=== PATIENT | male | born 1980 | race Caucasian/White ===

== ENCOUNTER 2018-06-25 19:46 | Inpatient (IN) | payer OTHER, MEDICAID ==
[~2018-06-25] VITALS: Ht 195.6 cm; Wt 107.0 kg
[~2018-06-25 19:46] MED LIST: Acetaminophen/Hydrocodone Bi PO; CEPH250C16 PO
--- NOTE | 2018-06-25 19:46 | NUR ---
Patient ADITITyesha SNEHA, triaged by RN. Waiting for an available bed.
[2018-06-25 19:50] VITALS: BP 143/85
--- NOTE | 2018-06-25 20:45 | NUR ---
PT BIBA WITH C/O PAIN TO THE [facility] LEG/RIZVI. 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 PT STATED HE HAS AN INFECTION X 3 DAYS IN RIZVI. HE STATED HE CLEANS HIS WOUND EVERYDAY, LAST TIME WAS THIS MORNING. PT HAS HX OF METH USE. MEDICAL HX IS CANCER AND DM. NKA. PT PAIN LEVEL IS 10/10 AT THIS TIME. DENIES N/V/D; VSS; PATIENT POSITIONED FOR COMFORT; HOB ELEVATED; BEDRAILS UP X2; BED DOWN. ER MD MADE AWARE OF PT STATUS.
--- NOTE | 2018-06-25 20:51 | NUR ---
Patient transferred to bed 12. RN evaluating patient at bedside.
[2018-06-25] MEDS ORDERED: NACL 0.9% 1,000 ML IV ONE (22:40)
[2018-06-25] MEDS ORDERED: MORPHINE SULFATE 2 MG/ML SYR IVP ONE (22:40)
--- NOTE | 2018-06-25 22:54 | NUR ---
pt going to ct
--- NOTE | 2018-06-25 23:09 | NUR ---
BACK FROM CT
[2018-06-25 23:52] LABS: ANION GAP 6.8 (8-16); CARBON DIOXIDE 29.5 mmol/L (21-32); CREATININE 1.2 mg/dL (0.7-1.3); POTASSIUM 3.3 mmol/L (3.5-5.1)
[2018-06-25 23:54] LABS: BASOPHILS # (AUTO) 0.1 K/uL (0.00-0.22); BASOPHILS % (AUTO) 0.6 % (0.0-2.0); EOSINOPHILS # (AUTO) 0.2 K/uL (0-0.4); EOSINOPHILS % (AUTO) 1.3 % (0.0-4.0); HEMATOCRIT 30.3 % (36-52); HEMOGLOBIN 9.7 g/dL (12.0-18.0); LYMPHOCYTES # (AUTO) 2.8 K/uL (2.0-11.5); LYMPHOCYTES % (AUTO) 21.1 % (20.5-51.1); MEAN CORPUSCULAR HEMOGLOBIN 24 pg (27-31); MEAN CORPUSCULAR HGB CONC 32 g/dL (33-37); MEAN CORPUSCULAR VOLUME 74.7 fL (80-94); MONOCYTES # (AUTO) 0.7 K/uL (0.8-1.0); MONOCYTES % (AUTO) 5.6 % (1.7-9.3); NEUTROPHILS # (AUTO) 9.3 K/uL (1.8-7.7); NEUTROPHILS % (AUTO) 71.4 % (42.2-75.2); PLATELET COUNT (AUTO) 415 K/uL (140-450); RED BLOOD CELL COUNT(AUTO) 4.06 MIL/uL (4.20-6.10); RED CELL DISTRIBUTION WIDTH 15.1 % (11.6-13.7)
[2018-06-25 23:58] LABS: ALBUMIN 2.6 g/dL (3.4-5.0); TOTAL BILIRUBIN 0.2 mg/dL (0.0-1.0)
[2018-06-26] MEDS ORDERED: CLINDAMYCIN 900 MG in DEXTROSE 5% 100 ML IV ONE (00:35)
[2018-06-26] MEDS ORDERED: POTASSIUM CHLORIDE 10 MEQ TABER PO ONE (01:00)
[2018-06-26] MEDS ORDERED: CLINDAMYCIN 900 MG/6 ML VIAL IV ONE (01:01)
--- NOTE | 2018-06-26 01:05 | NUR ---
PT SLEEPING IN BED, VITALS STABLE.
[2018-06-26] MEDS ORDERED: LORazepam 2 MG/ML VIAL IM/IVP PRN (02:00)
[2018-06-26] MEDS ORDERED: ZOLPIDEM 5 MG TAB PO PRN (02:00)
[2018-06-26] MEDS ORDERED: ONDANSETRON 4 MG/2 ML VIAL IM/IVP PRN (02:00)
[2018-06-26] MEDS ORDERED: MORPHINE SULFATE 2 MG/ML SYR IVP PRN (02:00)
[2018-06-26] MEDS ORDERED: DOCUSATE SODIUM 100 MG GELCAP PO PRN (02:00)
[2018-06-26 02:33] LABS: THYROID STIMULATING HORMONE 0.87 uIU/mL (0.34-3.74)
[2018-06-26 02:40] LABS: MAGNESIUM 1.8 mg/dL (1.8-2.4)
[2018-06-26] MEDS ORDERED: POTASSIUM CHLORIDE 10 MEQ TABER PO SCH ×2 (02:45→13:30)
[2018-06-26] MEDS ORDERED: DEXTROSE 50% 50 ML SYR IVP PRN (02:50)
--- NOTE | 2018-06-26 02:50 | NUR ---
Pt report given to SUZI FELIZ. Transfer of care at this time.VITALS STABLE
--- NOTE | 2018-06-26 02:55 | NUR ---
Patient will be admitted to care of DR. SLOAN. Admited to TELEMETRY. Will go to room 118. Belongings list completed. Report to SUZI FELIZ.PT VITALS STABLE AT TRANSFER
[2018-06-26 03:00] VITALS: BP 130/81
--- NOTE | 2018-06-26 03:00 | NUR ---
RECEIVED REPORT FROM ER NURSE AT BEDSIDE FOR CONTINUITY OF CARE. PT AAOX4. PT IV NOTED LAC 20G. NO SOB NO S.S OF DISTRESS ON RA. PT BED LOWERED ORIENTED TO ROOM PT AMBULATORY. WILL CONTINUE TO MONITOR.
[2018-06-26 03:29] LABS: APPEARANCE,URINE CLEAR (CLEAR); BILIRUBIN,URINE NEGATIVE (NEGATIVE); BLOOD, URINE NEGATIVE (NEGATIVE); COLOR,URINE YELLOW (YELLOW); LEUKOCYTE ESTERASE ,URINE NEGATIVE (NEGATIVE); NITRITE, URINE NEGATIVE (NEGATIVE); PH,URINE 6.5 (5.0-9.0); UGLUCOSE NEGATIVE (NEGATIVE)
[2018-06-26 03:35] LABS: BARBITURATE, URINE NEG. ng/ml (NEG <=200); BENZODIAZEPINE, URINE NEG. ng/mL (NEG <=200); CANNABINOID, URINE NEG. ng/mL (NEG <=50); COCAINE, URINE NEG. ng/mL (NEG <=300); OPIATE, URINE NEG. ng/mL (NEG <=2000); PHENCYCLIDINE SCREEN,URINE NEG. ng/mL (NEG <=25)
[2018-06-26] MEDS: NACL 0.9% 1,000 ML IV SCH ×3 (03:49→17:54)
[2018-06-26] MEDS ORDERED: PIPERACILLIN/TAZOBACTAM 3.375 GM in DEXTROSE 5% 50 ML IV SCH (04:00)
[2018-06-26] MEDS ORDERED: PIPERACILLIN/TAZOBACTAM 3.375 GM VIAL IV ONE (04:36)
[2018-06-26] MEDS: BLOOD GLUCOSE MONITORING 1 DEV DEV FS SCH ×4 (06:38→20:31)
[2018-06-26] MEDS: INSULIN LISPRO SLIDING SCALE 100 UNITS/ML VIAL SUBQ PRN ×2 (06:41→12:00)
--- NOTE | 2018-06-26 07:20 | NUR ---
ENDORSED REPORT TO DAYSHIFT NURSE AT BEDSIDE FOR CONTINUITY OF CARE.
--- NOTE | 2018-06-26 07:40 | NUR ---
PATIENT WAS SLEEPING COMFORTABLY, EASILY AROUSABLE BY NAME. RESPIRATION EVEN, UNLABOR ON ROOM AIR. SKIN DRY AND WARM. IV PATENT AND INTACT. ADMITTED HAVING LEG PAIN 8/10, BUT REFUSED PAIN MED, STATED "THE PAIN IS STILL TOLERABLE". PLAN OF CARE WAS DISCUSSED WITH PATIENT. BED AT LOW POSITION, SIDE RAILS UP. CALL LIGHT WITHIN REACH.
[2018-06-26 08:00] VITALS: BP 129/83
--- NOTE | 2018-06-26 08:10 | NUR ---
PATIENT HAS BEEN SCREENED AND CATEGORIZED HIGH RISK. PATIENT WILL BE SEEN WITHIN 1-2 DAYS OF ADMISSION. 06/27-04/[address], [facility]
--- NOTE | 2018-06-26 08:50 | NUR ---
PATIENT AWAKE, ALERT. RESPIRATION EVEN, UNLABOR ON ROOM AIR. NO DISTRESS NOTED AT THIS TIME
[2018-06-26] MEDS: LACTOBACILLUS RHAMNOSUS GG 1 EACH CAP PO SCH (09:12)
--- NOTE | 2018-06-26 11:45 | NUR ---
PATIENT AWAKE, ALERT. RESPIRATION EVEN, UNLABOR ON ROOM AIR. COMPLAINED OF LEG PAIN 8/10, BUT REFUSED TO TAKE PAIN MED AT THIS TIME. MED WAS GIVEN FOR FEVER 101.2, WILL CONTINUE TO MONITOR. CALL LIGHT WITHIN REACH
[2018-06-26] MEDS: ACETAMINOPHEN 325 MG TAB PO PRN ×2 (11:57→17:58)
[2018-06-26 12:00] VITALS: BP 128/69
[2018-06-26] MEDS ORDERED: VANCOMYCIN HCL 750 MG in DEXTROSE 5% 250 ML IV SCH (12:20)
--- NOTE | 2018-06-26 12:45 | NUR ---
WOUND CARE WAS GIVEN. DRESSING WAS CHANGED. PATIENT TOLERATED WELL.
[2018-06-26] MEDS ORDERED: VANCOMYCIN PER PHARMACY MC PRN (13:25)
--- NOTE | 2018-06-26 14:15 | NUR ---
PATIENT WAS SLEEPING COMFORTABLY. RESPIRATION EVEN, UNLABOR ON ROOM AIR. NO DISTRESS NOTED AT THIS TIME
[2018-06-26] MEDS: VANCOMYCIN 1,500 MG in DEXTROSE 5% 500 ML IV SCH (15:15)
[2018-06-26 16:00] VITALS: BP 133/86
[2018-06-26] MEDS: HYDROcodone/APAP 5/325 MG 1 TAB TAB PO PRN (16:24)
--- NOTE | 2018-06-26 16:32 | NUR ---
PATIENT WAS AWAKE, ALERT. RESPIRATION EVEN, UNLABOR ON ROOM AIR. COMPLAINED OF LEG PAIN /, REQUESTED NORCO, WILL MEDICATE PER ORDER. ICE PACKS WERE GIVEN FOR THE FEVER CONTROL
--- NOTE | 2018-06-26 17:50 | NUR ---
PATIENT TEMP 103.2. TYLENOL WAS GIVEN PER ORDER. ICE PACKS WERE APPLIED. WILL NOTIFY
--- NOTE | 2018-06-26 18:07 | NUR ---
DR. CANSECO WAS MADE AWARE OF PATIENT'S HR 141, TEMP 103.6. WILL MEDICATE PER ORDER
[2018-06-26] MEDS ORDERED: NACL 0.9% 1,000 ML IV ONE ×2 (18:10→20:00)
--- NOTE | 2018-06-26 18:18 | NUR ---
PATIENT AWAKE, ALERT. RESPIRATION EVEN, UNLABOR ON ROOM AIR. IVF WAS GIVEN PER ORDER. NO DISTRESS NOTED AT THIS TIME. CALL LIGHT WITHIN REACH
--- NOTE | 2018-06-26 19:25 | NUR ---
ENDORSEMENT GIVEN TO THE PARKS RECREATION COORDINATOR NURSE. PATIENT IS STABLE AT THIS TIME
--- NOTE | 2018-06-26 19:26 | NUR ---
RECEIVED REPORT FROM DAY SHIFT RN, FOR CONTINUITY OF CARE. PT IS A/OX4, ON ROOM AIR. PT IS ABLE TO MAKE NEEDS KNOWN, ABLE TO FOLLOW COMMANDS. PT BREATHS EQUAL AND UNLABORED. PT SKIN IS NON-INTACT, SEE WOUND ASSESSMENT. PT HAS A 20G IV TO LEFT AC, ASYMPTOMATIC AND INTACT. DISCUSSED PLAN OF CARE WITH PT, PT VERBALIZED UNDERSTANDING. TEMPERATURE ELEVATED BUT TRENDING DOWN FROM PREVIOUS TEMP. OTHER VITAL SIGNS WITHIN NORMAL LIMITS. PT STABLE, NO SIGNS OF DISTRESS NOTED AT THIS TIME. BED IN LOWEST POSITION, BED ALARM ON. CALL LIGHT WITHIN REACH, WILL CONTINUE TO MONITOR.
[2018-06-26 19:35] VITALS: BP 117/64
--- NOTE | 2018-06-26 21:31 | NUR ---
BOLUS STILL INFUSING, NO INSULIN COVERAGE NEEDED FOR GLUCOSE LEVEL 142.
--- NOTE | 2018-06-26 23:10 | NUR ---
PT TEMPERATURE STILL TRENDING DOWN. AFEBRILE.
[2018-06-27] VITALS: BP 136/86
--- NOTE | 2018-06-27 | NUR ---
VITAL SIGNS WITHIN NORMAL LIMITS. PT STABLE, NO SIGNS OF DISTRESS NOTED AT THIS TIME. BED IN LOWEST POSITION, BED ALARM ON. CALL LIGHT WITHIN REACH, WILL CONTINUE TO MONITOR.
--- NOTE | 2018-06-27 01:34 | NUR ---
DRESSING ON WOUND STILL CLEAN AND INTACT.
[2018-06-27] MEDS: NACL 0.9% 1,000 ML IV SCH ×2 (02:35→09:48)
--- NOTE | 2018-06-27 02:35 | NUR ---
PT STILL AFEBRILE.
[2018-06-27] MEDS: VANCOMYCIN 1,500 MG in DEXTROSE 5% 500 ML IV SCH (02:36)
--- NOTE | 2018-06-27 02:36 | NUR ---
INFORMED PT THAT BECAUSE HE HAS DM, PNA VACCINE AVAILABLE TO HIM. OFFERED PT PNA VACCINE BUT PT REFUSED STATING HE WOULD RATHER DISCUSS IT WITH HIS PCP FIRST.
[2018-06-27 04:00] VITALS: BP 131/79
[2018-06-27] MEDS: BLOOD GLUCOSE MONITORING 1 DEV DEV FS SCH ×4 (06:38→20:31)
[2018-06-27 06:49] LABS: BASOPHILS # (AUTO) 0.1 K/uL (0.00-0.22); BASOPHILS % (AUTO) 0.5 % (0.0-2.0); EOSINOPHILS # (AUTO) 0.3 K/uL (0-0.4); HEMATOCRIT 28.6 % (36-52); HEMOGLOBIN 9.2 g/dL (12.0-18.0); LYMPHOCYTES # (AUTO) 1.6 K/uL (2.0-11.5); LYMPHOCYTES % (AUTO) 14.9 % (20.5-51.1); MEAN CORPUSCULAR HEMOGLOBIN 24 pg (27-31); MEAN CORPUSCULAR HGB CONC 32 g/dL (33-37); MEAN CORPUSCULAR VOLUME 74.7 fL (80-94); MONOCYTES # (AUTO) 0.6 K/uL (0.8-1.0); MONOCYTES % (AUTO) 5.8 % (1.7-9.3); NEUTROPHILS # (AUTO) 8.1 K/uL (1.8-7.7); NEUTROPHILS % (AUTO) 75.8 % (42.2-75.2); PLATELET COUNT (AUTO) 384 K/uL (140-450); RED BLOOD CELL COUNT(AUTO) 3.82 MIL/uL (4.20-6.10); RED CELL DISTRIBUTION WIDTH 15.2 % (11.6-13.7); WHITE BLOOD COUNT (AUTO) 10.7 K/uL (4.8-10.8)
[2018-06-27 07:00] LABS: MAGNESIUM 1.9 mg/dL (1.8-2.4); PHOSPHORUS 2.5 mg/dL (2.5-4.9)
[2018-06-27 07:01] LABS: ANION GAP 5.2 (8-16); CARBON DIOXIDE 28.2 mmol/L (21-32); CREATININE 0.7 mg/dL (0.7-1.3); POTASSIUM 3.4 mmol/L (3.5-5.1)
--- NOTE | 2018-06-27 07:17 | NUR ---
ENDORSED PT TO DAY SHIFT RN FOR CONTINUITY OF CARE, PT IN STABLE CONDITION. Addendum: 06/27/18 at 0717 by Gena Youssef RN DISREGARD.
--- NOTE | 2018-06-27 07:18 | NUR ---
ENDORSED PT TO DAY SHIFT BLAYNE VALERA FOR CONTINUITY OF CARE, PT IN STABLE CONDITION.
--- NOTE | 2018-06-27 07:20 | NUR ---
ASSUMED CONTINUITY OF CARE. NO SIGNS AND SYMPTOMS OF ACUTE DISTRESS NOTED. INITIAL ASSESSMENT DONE. EXPLAINED DIAGNOSIS, PLAN OF CARE, PAIN MANAGEMENT TEACHING, USE OF CALL LIGHT/BED/TV/BATHROOM. VERBALIZED UNDERSTANDING. CALL LIGHT WITHIN REACH.
[2018-06-27 08:00] VITALS: BP 129/82
--- NOTE | 2018-06-27 08:00 | NUR ---
Patient's Plan of Care was discussed and reviewed with SKEIN DYER: LIBBY CONTINUE WITH CURRENT PLAN OF CARE.
[2018-06-27 08:09] LABS: T4 (THYROXINE) 6.9 ug/dL (4.5-12.0)
--- NOTE | 2018-06-27 08:13 | NUR ---
INFORMED DR. GODOY ABOUT PT. K 3.4 AND DIET CHANGE DUE TO PT. DM.
[2018-06-27] MEDS: LACTOBACILLUS RHAMNOSUS GG 1 EACH CAP PO SCH (08:40)
[2018-06-27] MEDS ORDERED: VANCOMYCIN 1,500 MG in DEXTROSE 5% 500 ML IV SCH (10:06)
[2018-06-27] MEDS ORDERED: POTASSIUM CHLORIDE 10 MEQ TABER PO SCH (10:15)
[2018-06-27] MEDS: INSULIN LISPRO SLIDING SCALE 100 UNITS/ML VIAL SUBQ PRN (11:46)
[2018-06-27 12:00] VITALS: BP 149/89
[2018-06-27] MEDS: ACETAMINOPHEN 325 MG TAB PO PRN (12:12)
[2018-06-27] MEDS: PIPER/TAZO 3.375GM/D5W PREMIX 50 ML IV SCH ×2 (12:36→20:31)
--- NOTE | 2018-06-27 13:30 | NUR ---
TEMP 99.0 TEMPORAL SCAN. NO ACUTE DISTRESS NOTED. ENCOURAGED FLUID INTAKE. WILL MONITOR.
--- NOTE | 2018-06-27 14:25 | NUR ---
GUEST SERVICES MANAGER JACOB CAME FOR PT. NAHED BLOOD DRAW.
--- NOTE | 2018-06-27 15:34 | NUR ---
CALLED PHARMACY AND SPOKE TO [facility] REGARDING VANCOCIN DOSE SCHEDULED AT 1500. PER -[facility], DOSE WILL BE CHANGE PER PHARMACY AND DOSE WILL SEND TO [facility] ONCE IT'S READY.
[2018-06-27] MEDS: VANCOMYCIN 2,000 MG in DEXTROSE 5% 500 ML IV SCH ×2 (16:40→23:21)
--- NOTE | 2018-06-27 19:08 | NUR ---
REPORT GIVEN TO CECILY HENSLEY. IVF INFUSING WELL. IN STABLE CONDITION.
--- NOTE | 2018-06-27 19:10 | NUR ---
RECEIVED REPORT FROM DAY SHIFT RN, FOR CONTINUITY OF CARE. PT IS A/OX4, ON ROOM AIR. PT IS ABLE TO MAKE NEEDS KNOWN, ABLE TO FOLLOW COMMANDS. PT BREATHS EQUAL AND UNLABORED. PT SKIN IS NON-INTACT, SEE WOUND ASSESSMENT. PT HAS A 20G IV TO LEFT HAND INFUSING NS@60ML/HR, ASYMPTOMATIC AND INTACT. DISCUSSED PLAN OF CARE WITH PT, PT VERBALIZED UNDERSTANDING. VITAL SIGNS WITHIN NORMAL LIMITS. PT STABLE, NO SIGNS OF DISTRESS NOTED AT THIS TIME. BED IN LOWEST POSITION, BED ALARM ON. CALL LIGHT WITHIN REACH, WILL CONTINUE TO MONITOR.
--- NOTE | 2018-06-27 21:15 | NUR ---
ENDORSED PT TO TRINI ROSAS. PARUL VALENTINO.
--- NOTE | 2018-06-27 21:16 | NUR ---
RECEIVED BEDSIDE REPORT FROM NURSE CECILY FELIZ, PT IN STABLE CONDITION, WILL CONTINUE TO MONITOR.
[2018-06-27] MEDS: HYDROcodone/APAP 5/325 MG 1 TAB TAB PO PRN (23:21)
--- NOTE | 2018-06-27 23:21 | NUR ---
DUE MEDICATION ADMINISTERED, PT STATED HAVING PAIN ON LEG, PAIN MEDICATION ORDERED ADMINISTERED, PT TOLERATED WELL, NO DISTRESS NOTED, CALL LIGHT WITHIN REACH, WILL CONTINUE TO MONITOR.
[2018-06-28 00:22] VITALS: BP 122/82
--- NOTE | 2018-06-28 02:11 | NUR ---
CHECKED ON PT, PT SLEEPING, NO DISTRESS NOTED, CALL LIGHT WITHIN REACH, WILL CONTINUE TO MONITOR.
[2018-06-28] MEDS: NACL 0.9% 1,000 ML IV SCH ×2 (04:57→16:50)
[2018-06-28] MEDS: PIPER/TAZO 3.375GM/D5W PREMIX 50 ML IV SCH ×3 (04:57→21:16)
--- NOTE | 2018-06-28 04:57 | NUR ---
DUE MEDICATION ADMINISTERED, PT TOLERATED WELL, NO DISTRESS NOTED, CALL LIGHT WITHIN REACH, WILL CONTINUE TO MONITOR.
[2018-06-28] MEDS: BLOOD GLUCOSE MONITORING 1 DEV DEV FS SCH ×4 (05:55→21:00)
--- NOTE | 2018-06-28 07:20 | NUR ---
ENDORSED PT TO DAY SHIFT NURSE FAMILIA RN, PT STABLE, NO DISTRESS NOTED, CALL LIGHT WITHIN REACH.
--- NOTE | 2018-06-28 07:21 | NUR ---
RECEIVED REPORT FROM DIRECTOR FIELD SERVICES NURSE. PATIENT LYING DOWN IN BED SLEEPING, AROUSABLE BY VOICE. NO DISTRESS NOTED. PAIN WITHIN TOLERABLE AT THIS TIME. AAOX4, CALM, COOPERATIVE, SKIN COLOR APPROPRIATE TO ETHNICITY, WARM TO TOUCH. HAS LEFT LOWER EXTREMITY OPEN WOUND, DRESSING IS DRY AND INTACT. LUNGS CTA ON ALL LOBES. ABDOMEN SOFT, NON-DISTENDED. IV SITE INTACT, PATENT, AND INFUSING IVF PER MD ORDERS. REVIEWED PLAN OF CARE WITH PATIENT. PATIENT VERBALIZED UNDERSTANDING. SAFETY MEASURES IN PLACE, CALL LIGHT WITHIN REACH. WILL CONTINUE TO MONITOR.
[2018-06-28 07:54] LABS: ANION GAP 11.7 (8-16); CARBON DIOXIDE 28.3 mmol/L (21-32); CREATININE 0.8 mg/dL (0.7-1.3)
[2018-06-28 07:56] LABS: PHOSPHORUS 4.2 mg/dL (2.5-4.9)
[2018-06-28 07:57] LABS: BASOPHILS # (AUTO) 0.1 K/uL (0.00-0.22); BASOPHILS % (AUTO) 0.7 % (0.0-2.0); EOSINOPHILS # (AUTO) 0.6 K/uL (0-0.4); HEMATOCRIT 31.3 % (36-52); LYMPHOCYTES # (AUTO) 1.6 K/uL (2.0-11.5); LYMPHOCYTES % (AUTO) 14.2 % (20.5-51.1); MEAN CORPUSCULAR HEMOGLOBIN 24 pg (27-31); MEAN CORPUSCULAR HGB CONC 32 g/dL (33-37); MEAN CORPUSCULAR VOLUME 74.4 fL (80-94); MONOCYTES # (AUTO) 0.6 K/uL (0.8-1.0); MONOCYTES % (AUTO) 4.9 % (1.7-9.3); NEUTROPHILS # (AUTO) 8.6 K/uL (1.8-7.7); NEUTROPHILS % (AUTO) 75.2 % (42.2-75.2); PLATELET COUNT (AUTO) 408 K/uL (140-450); RED BLOOD CELL COUNT(AUTO) 4.21 MIL/uL (4.20-6.10); WHITE BLOOD COUNT (AUTO) 11.4 K/uL (4.8-10.8)
[2018-06-28 08:00] VITALS: BP 131/92
[2018-06-28] MEDS: VANCOMYCIN 2,000 MG in DEXTROSE 5% 500 ML IV SCH (08:59)
[2018-06-28] MEDS: LACTOBACILLUS RHAMNOSUS GG 1 EACH CAP PO SCH (09:00)
--- NOTE | 2018-06-28 09:05 | NUR ---
PATIENT SITTING IN BED WATCHING TV. NO DISTRESS NOTED. PAIN WITHIN TOLERABLE. SCHEDULED MEDICATIONS DUE GIVEN. SAFETY MEASURES IN PLACE, CALL LIGHT WITHIN REACH. WILL CONTINUE TO MONITOR.
--- NOTE | 2018-06-28 13:41 | NUR ---
PATIENT LYING DOWN IN BED SLEEPING, AROUSABLE BY VOICE. PAIN WITHIN TOLERABLE. SCHEDULED MEDICATIONS DUE GIVEN. WILL CONTINUE TO MONITOR.
--- NOTE | 2018-06-28 14:51 | NUR ---
06/28/18 RD INITIAL ASSESSMENT COMPLETED PLEASE REFER TO NUTRITION ASSESSMENT UNDER CARE ACTIVITY FOR ESTIMATED NUTRITIONAL NEEDS. 1. CONTINUE CCHO 60 DIET TOLERATED 2. RECOMMEND [place] BID. 3. RD TO FOLLOW-UP 5-7 DAYS, LOW RISK MORENITA BUTTERFIELD, RD
--- NOTE | 2018-06-28 15:25 | NUR ---
WOUND CARE EVALUATION NOTE: REASON FOR EVALUATION: LEFT LOWER LEG SARCOMA MASS WOUND SKIN ASSESSMENT DONE WITH THIS 38 Y/O MALE PT ADMITTED FROM HOME TO [facility] WITH INITIAL DX OF LEFT LEG PAIN X 1 WEEK. PAST MEDICAL HX INCLUDES LEFT TIBIAL SARCOMA. ALL ABOVE INFORMATION OBTAINED FROM ADMISSION H&P. AND PT. PT IS AAX3. PT. SHOULD HAVE CHEMOTHERAPY TO [facility], PT PREFERS TO COME TO LOCAL AREA SINCE HE LIVES AT [place]. DR. GILLESPIE MADE AWARE WILL ASSIST IN ARRANGING CARE TO LOCAL HOSPITAL SUCH [facility]. LABS ARE WBC 11.4, H/H 10.0/31.3, GLUCOSE 102 AND ALBUMIN 2.6. SKIN IS WARM AND DRY, BLE LOT OF HAIR GROWTH. BILATERAL DORSAL PEDAL PULSES PRESENT AND NORMAL. CAPILLARY REFILLED < 2 SEC. X 10 TOES. PLAN OF CARE DISCUSSED WITH PRIMARY RN AND PT. PT. VERBALIZES UNDERSTANDING. INTEGUMENTARY: -LEFT LOWER LEG SARCOMA MASS [id number] WITH 10 CM TALL, OOZING PURULENT DRAINAGE WITH STRONG ODOR, GIOVANY WOUND SKIN INTACT, PAIN2/10 RECOMMENDATIONS: -SURGEON TO CONSULT. -CLEANSE LEFT LOWER LEG SARCOMA MASS WITH NS. PAT DRY, APPLY XEROFORM, AND COVER WITH ABD PAD, WRAP WITH KERLIX ROLL DAILY AND PRN IF SOILING. -OFFLOAD BILATERAL HEELS BY PLACING PILLOWS UNDER CALVES UNLESS OTHERWISE CONTRAINDICATED -TURN AND REPOSITION Q2H, OFFLOAD LEFT SCAPULAR BY TURNING RIGHT AND LEFT -CONTINUE TO FOLLOW RD RECOMMENDATIONS ALL ABOVE RECOMMENDATIONS DISCUSSED WITH PRIMARY RN AND DR. GILLESPIE WILL FOLLOW UP PT Q7-10 DAYS. PLEASE CONTACT WOUND CARE NURSE FOR ANY QUESTION AND CHANGE OF WOUND CONDITION
[2018-06-28 16:00] VITALS: BP 126/84
[2018-06-28] MEDS: FERROUS SULFATE 325 MG TABEC PO SCH (17:50)
[2018-06-28] MEDS: HYDROcodone/APAP 5/325 MG 1 TAB TAB PO PRN (17:50)
--- NOTE | 2018-06-28 17:52 | NUR ---
DR. GILLESPIE AT BEDSIDE REVIEWING PLAN OF CARE WITH PATIENT/ AT BEDSIDE. SCHEDULED MEDICATIONS DUE GIVEN. COMPLAINS OF PAIN ON LLE, NORCO GIVEN PER ORDERS. SAFETY MEASURES IN PLACE, CALL LIGHT WITHIN REACH. WILL CONTINUE TO MONITOR.
[2018-06-28] MEDS: VANCOMYCIN 1,750 MG in DEXTROSE 5% 500 ML IV SCH (18:44)
--- NOTE | 2018-06-28 18:45 | NUR ---
PATIENT LYING DOWN IN BED WATCHING TV. NO DISTRESS NOTED. DENIES ANY PAIN. SCHEDULED MEDICATIONS DUE GIVEN. CONDITION UNCHANGED. WILL CONTINUE TO MONITOR.
--- NOTE | 2018-06-28 19:27 | NUR ---
GAVE REPORT TO WILDLAND FIRE FIGHTER SPECIALIST NURSE FOR CONTINUITY OF CARE. PATIENT IN STABLE CONDITION.
--- NOTE | 2018-06-28 19:30 | NUR ---
RECEIVED REPORT FROM DAYSHIFT NURSE AT BEDSIDE FOR CONTINUITY OF CARE. PT AAOX4. PT IV NOTED L HAND NS 60ML/HR. OF NOW VANCO IVPB IS RUNNING AT 250ML/HR. NO SOB NO S/S OF DISTRESS ON RA. PT HAS L TIBIAL WOUND. BED LOWERED CALL LIGHT WITHIN REACH WILL CONTINUE TO MONITOR.
[2018-06-28 23:03] VITALS: BP 126/88
--- NOTE | 2018-06-29 | NUR ---
PT SLEEPING NO SOB NO S/S OF DISTRESS ON RA. WILL CONTINUE TO MONITOR.
--- NOTE | 2018-06-29 | NUR ---
PT IN BED ASLEEP BUT PT AROUSABLE TO NAME. V/S FOLLOWS T 98.8 P 98 R 18 B/P 127/85 02 99% WITH R/A. DRESSING ON LEFT LEG INTACT.
[2018-06-29] MEDS: VANCOMYCIN 1,750 MG in DEXTROSE 5% 500 ML IV SCH ×3 (02:00→18:52)
--- NOTE | 2018-06-29 02:00 | NUR ---
PT SLEEPING SOUNDLY BED RAILS UP X2 AND CALL PHAN IN REACH.
[2018-06-29] MEDS: PIPER/TAZO 3.375GM/D5W PREMIX 50 ML IV SCH ×3 (04:33→22:32)
--- NOTE | 2018-06-29 04:38 | NUR ---
PT SLEEPING NO SOB NO S/S OF DISTRESS ON RA. WILL CONTINUE TO MONITOR.
[2018-06-29] MEDS: BLOOD GLUCOSE MONITORING 1 DEV DEV FS SCH ×4 (05:57→21:00)
[2018-06-29 06:40] LABS: BASOPHILS % (AUTO) 0.3 % (0.0-2.0); EOSINOPHILS # (AUTO) 0.5 K/uL (0-0.4); EOSINOPHILS % (AUTO) 5.5 % (0.0-4.0); HEMOGLOBIN 10.6 g/dL (12.0-18.0); LYMPHOCYTES # (AUTO) 1.5 K/uL (2.0-11.5); LYMPHOCYTES % (AUTO) 15.9 % (20.5-51.1); MEAN CORPUSCULAR HEMOGLOBIN 24 pg (27-31); MEAN CORPUSCULAR HGB CONC 32 g/dL (33-37); MEAN CORPUSCULAR VOLUME 74.3 fL (80-94); MONOCYTES # (AUTO) 0.7 K/uL (0.8-1.0); MONOCYTES % (AUTO) 7.5 % (1.7-9.3); NEUTROPHILS # (AUTO) 6.8 K/uL (1.8-7.7); NEUTROPHILS % (AUTO) 70.8 % (42.2-75.2); PLATELET COUNT (AUTO) 498 K/uL (140-450); RED BLOOD CELL COUNT(AUTO) 4.43 MIL/uL (4.20-6.10); RED CELL DISTRIBUTION WIDTH 15.3 % (11.6-13.7); WHITE BLOOD COUNT (AUTO) 9.5 K/uL (4.8-10.8)
[2018-06-29 06:52] LABS: ANION GAP 9.8 (8-16); CARBON DIOXIDE 26.1 mmol/L (21-32); CREATININE 0.9 mg/dL (0.7-1.3); POTASSIUM 3.9 mmol/L (3.5-5.1)
[2018-06-29 06:57] LABS: PHOSPHORUS 4.4 mg/dL (2.5-4.9)
--- NOTE | 2018-06-29 07:08 | NUR ---
ENDORSED REPORT TO DAYSHIFT NURSE AT BEDSIDE FOR CONTINUITY OF CARE.
--- NOTE | 2018-06-29 07:09 | NUR ---
RECEIVED REPORT FROM SALES PROMOTER NURSE. PATIENT LYING DOWN IN BED SLEEPING, AROUSABLE BY VOICE. NO DISTRESS NOTED. DENIES ANY PAIN AT THIS TIME. AAOX4, CALM, COOPERATIVE, SKIN COLOR APPROPRIATE TO ETHNICITY, WARM TO TOUCH. HAS LEFT LOWER EXTREMITY OPEN WOUND, DRESSING IS DRY AND INTACT. LUNGS CTA ON ALL LOBES. ABDOMEN SOFT, NON-DISTENDED. IV SITE INTACT, PATENT, AND INFUSING IVF PER MD ORDERS. REVIEWED PLAN OF CARE WITH PATIENT. PATIENT VERBALIZED UNDERSTANDING. SAFETY MEASURES IN PLACE, CALL LIGHT WITHIN REACH. WILL CONTINUE TO MONITOR.
[2018-06-29 07:36] LABS: FOLIC ACID 7.1 ng/mL (>3.0)
[2018-06-29 08:00] VITALS: BP 120/83
[2018-06-29] MEDS: LACTOBACILLUS RHAMNOSUS GG 1 EACH CAP PO SCH (08:29)
[2018-06-29] MEDS: FERROUS SULFATE 325 MG TABEC PO SCH ×2 (08:29→17:21)
--- NOTE | 2018-06-29 08:30 | NUR ---
PATIENT LYING DOWN IN BED SLEEPING, AROUSABLE BY VOICE. NO DISTRESS NOTED. PAIN WITHIN TOLERABLE. SCHEDULED MEDICATIONS DUE GIVEN. WILL CONTINUE TO MONITOR.
[2018-06-29] MEDS: NACL 0.9% 1,000 ML IV SCH (09:30)
[2018-06-29] MEDS: HYDROcodone/APAP 5/325 MG 1 TAB TAB PO PRN (09:39)
--- NOTE | 2018-06-29 11:22 | NUR ---
PATIENT LYING DOWN IN BED WATCHING TV. NO DISTRESS NOTED. PAIN WITHIN TOLERABLE. CONDITION UNCHANGED. WILL CONTINUE TO MONITOR.
--- NOTE | 2018-06-29 12:06 | NUR ---
PATIENT LYING DOWN IN BED SLEEPING, AROUSABLE BY VOICE. NO DISTRESS NOTED. PAIN WITHIN TOLERABLE. SCHEDULED ANTIBIOTICS DUE GIVEN. SAFETY MEASURES IN PLACE, CALL LIGHT WITHIN REACH. WILL CONTINUE TO MONITOR.
--- NOTE | 2018-06-29 13:30 | NUR ---
RADIOLOGIST TECH AT BEDSIDE READY TO TAKE PATIENT FOR [place] BONE SCAN. WILL CONTINUE TO MONITOR WHEN PATIENT RETURNS ON UNIT.
[2018-06-29 16:00] VITALS: BP 128/82
--- NOTE | 2018-06-29 17:24 | NUR ---
SCHEDULED MEDICATIONS DUE GIVEN. RADIOLOGIST FROM [place] BONE SCAN BACK AT BEDSIDE TO TAKE PATIENT DOWN TO RADIOLOGY TO TAKE MORE PICTURES. WILL CONTINUE TO MONITOR WHEN PATIENT RETURNS ON UNIT.
--- NOTE | 2018-06-29 18:33 | NUR ---
PATIENT BACK ON UNIT FROM RADIOLOGY BONE SCAN. NO DISTRESS NOTED. CONDITION UNCHANGED. WILL CONTINUE TO MONITOR.
--- NOTE | 2018-06-29 19:35 | NUR ---
GAVE REPORT TO PEANUT SORTER NURSE FOR CONTINUITY OF CARE. PATIENT IN STABLE CONDITION.
--- NOTE | 2018-06-29 19:35 | NUR ---
RECEIVED ENDORSEMENT FORM MAYRANMSIENA RN FOR CONTINUITY OF CARE. PT IN STABLE CONDITION.
[2018-06-29 20:00] VITALS: BP 121/79
--- NOTE | 2018-06-29 21:00 | NUR ---
PTY IN BED AROUSABLE TO NAME, V/S FOLLOWS T 98.8 P 106 R 18 B/P 121/79 02 91% W R/A. DRESSING TO LEFT LEG INTACT WITH NO SIGNS OF DRAINAGE. PT GIVEN ALL MEDS DUE. PT DENIES PAIN.
[2018-06-30] MEDS ORDERED: INFLUENZA VIRUS VACCINE QUAD 0.5 ML SYR IMVAC SCH (00:55)
--- NOTE | 2018-06-30 02:00 | NUR ---
SPOKE WITH RESIDENT IN CARE OF PT REGARDING POC, DR. RUIZ REGARDING PLAN, DR. Villalobos SAID THAT THE PLAN WAS TO HAVE PT UNDERGO THE BONE SCAN ANFD RETURN PT TO HOME WITH A SIX WEEK IV THERAPY AT HOME, WHICH WILL ALLOW PT TO ATTEND CHEMO TREATMENTS.
[2018-06-30] MEDS: NACL 0.9% 1,000 ML IV SCH (02:10)
[2018-06-30] MEDS ORDERED: PIPERACILLIN/TAZOBACTAM 3.375 GM VIAL IV ONE (05:24)
[2018-06-30] MEDS: PIPER/TAZO 3.375GM/D5W PREMIX 50 ML IV SCH ×2 (05:25→13:34)
--- NOTE | 2018-06-30 06:00 | NUR ---
WOUND CARE DONE AT BEDSIDE, WOUND HAS MODERATE DRAINAGE OF SEROSANGENOUS FLUID. NO C/O OF PAIN OR DISTRESS NOTED.
[2018-06-30 06:35] LABS: BASOPHILS # (AUTO) 0.1 K/uL (0.00-0.22); BASOPHILS % (AUTO) 0.7 % (0.0-2.0); EOSINOPHILS # (AUTO) 0.4 K/uL (0-0.4); EOSINOPHILS % (AUTO) 4.2 % (0.0-4.0); HEMATOCRIT 33.9 % (36-52); HEMOGLOBIN 10.8 g/dL (12.0-18.0); LYMPHOCYTES # (AUTO) 1.6 K/uL (2.0-11.5); LYMPHOCYTES % (AUTO) 18.1 % (20.5-51.1); MEAN CORPUSCULAR HEMOGLOBIN 24 pg (27-31); MEAN CORPUSCULAR HGB CONC 32 g/dL (33-37); MEAN CORPUSCULAR VOLUME 74.3 fL (80-94); MONOCYTES # (AUTO) 0.7 K/uL (0.8-1.0); MONOCYTES % (AUTO) 8.2 % (1.7-9.3); NEUTROPHILS # (AUTO) 6.1 K/uL (1.8-7.7); NEUTROPHILS % (AUTO) 68.8 % (42.2-75.2); PLATELET COUNT (AUTO) 528 K/uL (140-450); RED BLOOD CELL COUNT(AUTO) 4.57 MIL/uL (4.20-6.10); RED CELL DISTRIBUTION WIDTH 15.5 % (11.6-13.7); WHITE BLOOD COUNT (AUTO) 8.9 K/uL (4.8-10.8)
[2018-06-30] MEDS: BLOOD GLUCOSE MONITORING 1 DEV DEV FS SCH ×3 (06:38→17:01)
[2018-06-30 06:44] LABS: ANION GAP 13.1 (8-16); CARBON DIOXIDE 27.2 mmol/L (21-32); CREATININE 0.9 mg/dL (0.7-1.3); POTASSIUM 4.3 mmol/L (3.5-5.1)
--- NOTE | 2018-06-30 07:10 | NUR ---
POC ENDORSED TO PRICILLA FELIZ DAYSHIFT NURSE AT BEDSIDE, PT IN STABLE CONDITION.
--- NOTE | 2018-06-30 07:11 | NUR ---
RECEIVED BEDSIDE REPORT FROM ASBESTOS MICROSCOPIST NURSE. PATIENT IS AWAKE, ALERT AND ORIENTEDX4. NO SIGNS OF DISTRESS ON ROOM AIR. SKIN HAS LLE FUNGATING SARCOMA. DRESSINGS ARE CLEAN, DRY AND INTACT. MED SURGE PATIENT. IV ON L HAND 20G INFUSING NS AT 60. CLEAN,DRY AND INTACT. CONTACT PRECAUTIONS IN PLACE. BED IN LOW POSITION. CALL LIGHT WITHIN REACH.
[2018-06-30 08:00] VITALS: BP 131/86
[2018-06-30] MEDS: LACTOBACILLUS RHAMNOSUS GG 1 EACH CAP PO SCH (08:16)
[2018-06-30] MEDS: FERROUS SULFATE 325 MG TABEC PO SCH ×2 (08:16→18:06)
--- NOTE | 2018-06-30 08:19 | NUR ---
ADMINISTERED MEDS. PATIENT TOLERATED WELL. WILL CONTINUE TO MONITOR THE PATIENT
--- NOTE | 2018-06-30 09:45 | NUR ---
EDUCATED THE PATIENT THAT DIRECTOR OF MUSIC THERAPY IS WORKING ON THE HOME HEALTH. HE SAID OK. TOLD HIM I WILL UPDATE HIM ON WHEN ITS READY. PATIENT TOLD ME THAT THE DOCTOR TALKED TO HIM ABOUT A NURSING FACILITY AND MAYBE THAT CAN BE AN OPTION. HE SAID HE DOES NOT WANT TO BE A BURDEN TO HIS IN LAWS. TOLD HIM I WOULD TALK TO THE DOCTOR AND CASE MANAGEMENT BUT PATIENT SAID NEVER MIND THAT HE WANTS TO BE AT HOME AND RATHER HAVE HOME HEALTH. I TOLD HIM I CAN LET DR AND CM KNOW AND HE SAID NO THAT HE REALLY JUST WANTS TO BE HOME
[2018-06-30] MEDS ORDERED: FER325 PO (11:00)
[2018-06-30] MEDS ORDERED: ROC2I IV (11:01)
[2018-06-30] MEDS ORDERED: METR250T2 PO (11:01)
--- NOTE | 2018-06-30 11:10 | NUR ---
DR GILLESPIE IN TO SEE THE PATIENT. PATIENT REFUSES TO GET A PICC LINE. HE SAID HE DOES NOT WANT IT. SAID OK AND PATIENT AGREED TO GO TO A NURSING FACILITY BUT DR SAID HE HAS TO TALK TO CASE MANAGEMENT FOR A NURSING FACILITY, PATIENT VERBALIZED UNDERSTANDING AND SAID HE DOES NOT WANT TO BE A BURDEN AT HOME W A PICC LINE
--- NOTE | 2018-06-30 12:09 | NUR ---
PATIENT IS EATING LUNCH. NO SIGNS OF DISTRESS. WILL CONTINUE TO MONITOR THE PATIENT.
--- NOTE | 2018-06-30 13:35 | NUR ---
ADMINISTERED IV ANTIBIOTICS. PATIENT TOLERATED WELL. ASKED IF HE NEEDED PAIN MEDS BEFORE WOUND CARE. PATIENT REFUSED
--- NOTE | 2018-06-30 14:14 | NUR ---
CLEANSED WOUND W NS, PAT DRY. APPLIED XEROFORM, GAUZE, ABD PAD, AND KERLIX. PATIENT TOLERATED WELL. TOOK PHOTO OF WOUND. WILL CONTINUE TO MONITOR THE PATIENT
[2018-06-30 16:00] VITALS: BP 118/82
--- NOTE | 2018-06-30 16:00 | NUR ---
PATIENTS GIRLFRIEND AT BEDSIDE. NO SIGNS OF DISTRESS. GIRLFRIEND BROUGHT PATIENT A SALAD. HE ALSO BROUGHT HIM AN ORANGE JUICE BUT TOLD HIM IT MIGHT INCREASE HIS SUGAR.
--- NOTE | 2018-06-30 16:55 | NUR ---
Fax Machine Repairer Note: I faxed inquiry to [facility], phone number . Per Caitlyn from [facility], they can't accept patient due to isolation. I faxed inquiry to [facility], phone number . Per Guanaco from [facility], they can accept patient, room 30B, accepting physician is , charge nurse Keshia made aware.
--- NOTE | 2018-06-30 17:19 | NUR ---
ARRANGED TRANSPORT WITH [facility] TO [facility] . BILINGUAL RECRUITER TIME 1800 ,KENZIE AWARE OF IT.
--- NOTE | 2018-06-30 17:38 | NUR ---
CALLED [facility] [phone] FOR TRANSPORT AUTH # REQUESTED THE FACE SHEET TO BE FAXED TO [phone]
--- NOTE | 2018-06-30 17:40 | NUR ---
GAVE REPORT TO SUZI THE NURSE RECEIVING THE PATIENT. GAVE CALL BACK NUMBER. ANSWERED ALL QUESTIONS AT THIS TIME
--- NOTE | 2018-06-30 18:00 | NUR ---
PATIENT SITTING IN BED. EDUCATED ON DISCHARGE. EDUCATED ON DISEASE PROCESS, ABN S/SX, WOUND CARE, EDUCATED ON WHEN TO GO TO THE ER, IV ANTIBIOTICS. PATIENT VERBALIZED UNDERSTANDING. REMOVED IV, IV TIP IS INTACT. ID BANDS REMOVED. EDUCATED ON TO FU WITH PCP AND ONCOLOGIST. patient REFUSED PNA AND FLU VACCINE. HE SAID HE THOUGHT THE FLU VACCINE IS THROUGH THE IV.
--- NOTE | 2018-06-30 19:34 | NUR ---
Patient's Plan of Care was discussed and reviewed with CAR WASHER: KEATON
--- NOTE | 2018-06-30 19:35 | NUR ---
GAVE REPORT TO [facility]. PATIENT LEFT IN STABLE CONDITION.
--- NOTE | 2018-06-30 19:37 | NUR ---
Patient's Plan of Care was discussed and reviewed with STARTING SHEET TANK OPERATOR: KEATON.
--- NOTE | 2018-06-30 19:38 | NUR ---
PATIENT WAS DISCHARGE BY AM NURSE IN STABLE CONDITION.
--- NOTE | 2018-07-01 08:37 | NUR ---
Learning Center Coordinator Note: Late entry for 06/30/18: I was informed by patient's snf choice is [facility] .
== END 2018-06-30 19:35 | DRG 871 ==
LOC: MED 19:46 → MTU 06-26 02:00
PROVIDERS: ADMIT General Practice; ATTEND General Practice
DX: A41.9 Sepsis, unspecified organism (principal); E43 Unspecified severe protein-calorie malnutrition; F33.1 Major depressive disorder, recurrent, moderate; C40.22 Malignant neoplasm of long bones of left lower limb; E87.1 Hypo-osmolality and hyponatremia; E87.6 Hypokalemia; F15.10 Other stimulant abuse, uncomplicated; E66.3 Overweight; R91.1 Solitary pulmonary nodule; D50.9 Iron deficiency anemia, unspecified; R73.03 Prediabetes; Z79.899 Other long term (current) drug therapy; Z68.28 Body mass index [BMI] 28.0-28.9, adult; Z71.51 Drug abuse counseling and surveillance of drug abuser
CPT/HCPCS: 36415; 71045; 73700; 78315; 80048; 80053; 80202; 80305; 81003; 82150; 82607; 82728; 82746; 82948; 82977; 83036; 83540; 83605; 83690; 83735; 83880; 84100; 84134; 84436; 84443; 84484; 85025; 85045; 85610; 85730; 87040; 87070; 87081; 87086; 87186; 90658; 93005; 96361; 96365; 99285; J1815; J2270; J2543; J3370; J3490; J7030; J7060; Q0092

== ENCOUNTER 2018-11-30 18:03 | Inpatient (IN) | payer MEDICAID, OTHER ==
[~2018-11-30] VITALS: Ht 195.6 cm; Wt 108.4 kg
[~2018-11-30 18:03] MED LIST changes: +ASCO500T45 PO; -Acetaminophen/Hydrocodone Bi PO; -CEPH250C16 PO; +DOCU-299 PO; +FER325 PO; +HYDR-5122 PO; +METR250T2 PO; +MULT-153 PO; +ROC2I IV; +SLIDE SUBQ
[2018-11-30 18:06] VITALS: BP 126/73
--- NOTE | 2018-11-30 19:15 | NUR ---
PATIENT PRESENTS TO ED WITH C/O LEFT LEG WOUND, LARGE GROWTH TO TIB/FIB AREA, FOUL SMELL, WITH MODERATE DRAINAGE. PT HAS HISTORY OF SARCOMA CANCER WITH RECURRING LEFT LEG WOUND, DM. PT STATES HE NOTICED FOUL SMELL ABOUT A WEEK AGO AND HAS BEEN HAVING FEVER, WITH 102 BEING THE HIGHEST TEMPERATURE. DENIES N/V/D; AAOX4 WITH EVEN AND STEADY GAIT; LUNGS CLEAR BL; HR EVEN AND REGULAR; PT DENIES ANY CP, SOB, OR COUGH AT THIS TIME; PATIENT STATES PAIN OF 10/10 AT THIS TIME; VSS; PATIENT POSITIONED FOR COMFORT; HOB ELEVATED; BEDRAILS UP X2; BED DOWN. ER MD MADE AWARE OF PT STATUS.
[2018-11-30] MEDS ORDERED: NACL 0.9% 500 ML IV SCH (19:54)
--- NOTE | 2018-11-30 20:15 | NUR ---
IV STARTED, PT REQUESTED PAIN MEDICATION.
[2018-11-30] MEDS ORDERED: KETOROLAC 30 MG/ML VIAL IVP ONE (20:30)
--- NOTE | 2018-11-30 20:40 | NUR ---
ASKED ED MD FOR PAIN MEDICATION FOR PT. MD ORDERED TORADOL. PT TOLERATED WELL.
[2018-11-30 20:45] LABS: BASOPHILS # (AUTO) 0.1 K/uL (0.00-0.22); EOSINOPHILS # (AUTO) 0.2 K/uL (0-0.4); EOSINOPHILS % (AUTO) 2.6 % (0.0-4.0); HEMATOCRIT 22.8 % (36-52); LYMPHOCYTES # (AUTO) 1.7 K/uL (2.0-11.5); LYMPHOCYTES % (AUTO) 21.1 % (20.5-51.1); MEAN CORPUSCULAR HEMOGLOBIN 20 pg (27-31); MEAN CORPUSCULAR HGB CONC 30 g/dL (33-37); MEAN CORPUSCULAR VOLUME 66.3 fL (80-94); MONOCYTES # (AUTO) 0.5 K/uL (0.8-1.0); MONOCYTES % (AUTO) 6.3 % (1.7-9.3); NEUTROPHILS # (AUTO) 5.7 K/uL (1.8-7.7); PLATELET COUNT (AUTO) 490 K/uL (140-450); RED BLOOD CELL COUNT(AUTO) 3.45 MIL/uL (4.20-6.10); RED CELL DISTRIBUTION WIDTH 16.4 % (11.6-13.7); WHITE BLOOD COUNT (AUTO) 8.2 K/uL (4.8-10.8)
[2018-11-30 20:54] LABS: HEMOGLOBIN 6.9 g/dL (12.0-18.0)
[2018-11-30 21:04] LABS: ANION GAP 10.5 (8-16); CARBON DIOXIDE 27.2 mmol/L (21-32); CREATININE 0.9 mg/dL (0.7-1.3); POTASSIUM 3.7 mmol/L (3.5-5.1); PROTHROMBIN TIME 9.8 secs (10.8-13.4)
[2018-11-30 21:09] LABS: ALBUMIN 2.2 g/dL (3.4-5.0); TOTAL BILIRUBIN 0.2 mg/dL (0.0-1.0)
--- NOTE | 2018-11-30 21:35 | NUR ---
PT RESTING IN BED. VSS. NO SIGNS OF DISTRESS NOTED. WILL CONTINUE TO MONITOR.
[2018-11-30] MEDS ORDERED: NACL 0.9% 1,000 ML IV SCH (21:41)
[2018-11-30 21:43] LABS: APPEARANCE,URINE CLEAR (CLEAR); BILIRUBIN,URINE NEGATIVE (NEGATIVE); BLOOD, URINE NEGATIVE (NEGATIVE); COLOR,URINE YELLOW (YELLOW); LEUKOCYTE ESTERASE ,URINE NEGATIVE (NEGATIVE); NITRITE, URINE NEGATIVE (NEGATIVE); UGLUCOSE NEGATIVE (NEGATIVE)
[2018-11-30] MEDS ORDERED: DOCUSATE SODIUM 100 MG GELCAP PO PRN (21:45)
[2018-11-30] MEDS ORDERED: ONDANSETRON 4 MG/2 ML VIAL IM/IVP PRN (21:45)
[2018-11-30] MEDS ORDERED: ACETAMINOPHEN 325 MG TAB PO PRN (21:45)
[2018-11-30] MEDS ORDERED: HYDROcodone/APAP 7.5/325 MG 1 TAB PO PRN (21:45)
[2018-11-30 22:30] VITALS: BP 119/69
[2018-11-30] MEDS ORDERED: cefTRIAXone 2,000 MG in DEXTROSE 5% 100 ML IV SCH (22:30)
--- NOTE | 2018-11-30 22:30 | NUR ---
Admited to [facility]. Will go to room 113-A. Belongings list completed. Report GIVEN TO TRINI CONTRERAS. KAMLESH AT TRANSFER.
--- NOTE | 2018-11-30 22:30 | NUR ---
PT TRANSFERRED TO [facility] BY W/C AND AMBULATED INDEPENDENTLY TO BED 113. RECEIVED REPORT BY SHERITA FELIZ DAYSHIFT NURSE AT BEDSIDE FOR CONTINUITY OF CARE, PT IN STABLE CONDITION.
[2018-11-30 22:35] LABS: BARBITURATE, URINE NEG. ng/ml (NEG <=200); BENZODIAZEPINE, URINE NEG. ng/mL (NEG <=200); CANNABINOID, URINE NEG. ng/mL (NEG <=50); COCAINE, URINE NEG. ng/mL (NEG <=300); OPIATE, URINE NEG. ng/mL (NEG <=2000); PHENCYCLIDINE SCREEN,URINE NEG. ng/mL (NEG <=25)
[2018-11-30] MEDS: DEXT 5% /NACL 0.9% 1,000 ML IV SCH (22:35)
[2018-11-30 22:40] LABS: MAGNESIUM 1.7 mg/dL (1.8-2.4); PHOSPHORUS 3.7 mg/dL (2.5-4.9); THYROID STIMULATING HORMONE 0.67 uIU/mL (0.34-3.74)
--- NOTE | 2018-11-30 23:00 | NUR ---
PT ON BED AOX4. HE HAS NO C/O OF PAIN AT THIS TIME AND SAID THAT HIS PAIN IS UNDER CONTROL FROM ER. V/S FOLLOWS T 97.1 P96 R18 B/P 119/69 02 98% ON ROOM AIR. LUNGS CLEAR AND BOWEL SOUNDS ACTIVE, PT REQUEST WOUND DRESSING AND FOOD. PT UPDATED REGARDING DIET WHICH IS NOW NPO. PT VERBALIZED UNDERSTANDING.
[2018-11-30] MEDS ORDERED: cefTRIAXone 2,000 MG VIAL ONE (23:19)
--- NOTE | 2018-11-30 23:30 | NUR ---
PT RECEIVED ORDERED ROCEPHIN RUNNING AT 100. WOUND DRESSED. WITH ABD PADS ABD WRAPPED WITH GAUZE BANDAGE. CHARGE NURSE INFORMED THAT PRBC ARE READY , HOWEVER ROCEPHIN IS RUNNING AT THIS TIME, CHARGE OLESYA SAID TO LET ABT SAMOAN THEN GET PRBC. CONSENT SIGNED.
--- NOTE | 2018-12-01 | NUR ---
SPOKE WITH RESIDENT MD PT IS NPO FOR POSSIBLE SURGERY. PT ALLOWED ICE SHIPS.
--- NOTE | 2018-12-01 00:30 | NUR ---
LOWER LEFT LEG WOUND MEASURES 17AND 1/2CM HEAD TO TOE. 25CM IN WIDTH AND 5/12CM IN HEIGHT. WOUND HAS BLACK EN AREAS NO DRAINAGE BUT IS FILLED WITH NECROTIC TISSUE AND HAS A FOUL ODOR. WOUND HAS VERY MINIMAL DRAINAGE OF BLOOD (SCANT). PICTURE TAKEN OF WOUND AND WOUND DRESSED. AWAITING WOUND CONSULT.
--- NOTE | 2018-12-01 02:10 | NUR ---
BLOOD TRANSFUSION STARTED PRE TRANSFUSION V/S ARE FOLLOWS T 97.3 P 92 R 18 B/P 132/83 02 100% ON R/A. PT RESTING WITH EYES CLOSED NO C/O VOICED.
--- NOTE | 2018-12-01 02:25 | NUR ---
FIRST TRANSFUSION V/S ARE FOLLOWS T 97.3 P 90 R 18 B/P 120/78 02 100% ON R/A. NO S/S OF REACTION NOTED. WILL CONTINUE TO MONITOR V/S AND FOR S/S OF REACTION.
--- NOTE | 2018-12-01 03:15 | NUR ---
BLOOD TRANSFUSION IN PROGRESS V/S FOLLOWS T 98.4 P 95 R 18 B/P 137/88 02 98% ON ROOM AIR. NO REACTION NOTED. TROPONIN DRAWN AT BEDSIDE.
--- NOTE | 2018-12-01 03:45 | NUR ---
PT IN BED RESTING V/S FOLLOWS T 98.1 P 103 R 18 B/P 128/79 02 98 % ON ROOM AIR.
--- NOTE | 2018-12-01 04:15 | NUR ---
PT IN BED RESTING V/S FOLLOWS T 97.6 P 98 R 18 B/P 143/90 02 100% ON ROOM AIR. NO S/S OF REACTION NOTED.
[2018-12-01] MEDS: metroNIDAZOLE 500 MG/NS PREMIX 100 ML IV SCH ×2 (05:00→13:00)
--- NOTE | 2018-12-01 05:15 | NUR ---
PT IN BED RESTING NO S/S OF PAIN OR DISTRESS NOTED V/S FOLLOWS TR 97.9 P 98 R 18 B/P 120/80 02 98% ON ROOM AIR. BED LOW, SIDE RAILS UP AND CALL PHAN IN REACH.
[2018-12-01] MEDS ORDERED: INSULIN LISPRO SLIDING SCALE 100 UNITS/ML VIAL SUBQ PRN (05:45)
[2018-12-01] MEDS ORDERED: KETOROLAC 30 MG/ML VIAL IVP PRN (05:45)
[2018-12-01] MEDS ORDERED: DEXTROSE 50% 50 ML SYR IVP PRN (05:45)
[2018-12-01] MEDS: DEXT 5% /NACL 0.9% 1,000 ML IV SCH (06:10)
[2018-12-01 07:24] LABS: BASOPHILS # (AUTO) 0.1 K/uL (0.00-0.22); BASOPHILS % (AUTO) 0.7 % (0.0-2.0); EOSINOPHILS # (AUTO) 0.1 K/uL (0-0.4); EOSINOPHILS % (AUTO) 1.5 % (0.0-4.0); HEMATOCRIT 26.2 % (36-52); LYMPHOCYTES # (AUTO) 1.2 K/uL (2.0-11.5); LYMPHOCYTES % (AUTO) 11.6 % (20.5-51.1); MEAN CORPUSCULAR HEMOGLOBIN 21 pg (27-31); MEAN CORPUSCULAR HGB CONC 31 g/dL (33-37); MEAN CORPUSCULAR VOLUME 67.5 fL (80-94); MONOCYTES # (AUTO) 0.6 K/uL (0.8-1.0); NEUTROPHILS % (AUTO) 80.2 % (42.2-75.2); PLATELET COUNT (AUTO) 542 K/uL (140-450); RED BLOOD CELL COUNT(AUTO) 3.88 MIL/uL (4.20-6.10); RED CELL DISTRIBUTION WIDTH 17.5 % (11.6-13.7); WHITE BLOOD COUNT (AUTO) 9.9 K/uL (4.8-10.8)
[2018-12-01 07:27] LABS: ANION GAP 11.7 (8-16); CARBON DIOXIDE 26.5 mmol/L (21-32); CREATININE 0.9 mg/dL (0.7-1.3); POTASSIUM 4.2 mmol/L (3.5-5.1)
[2018-12-01] MEDS: BLOOD GLUCOSE MONITORING 1 DEV DEV FS SCH ×4 (07:30→21:56)
[2018-12-01 07:35] LABS: CHOL/HDL RATIO 3.8 (1-4.5); MAGNESIUM 1.8 mg/dL (1.8-2.4); PHOSPHORUS 3.1 mg/dL (2.5-4.9)
--- NOTE | 2018-12-01 07:35 | NUR ---
REPORT GIVEN TO ERIC RN DAYSHIFT NURSE AT BEDSIDE FOR CONTINUITY OF CARE, PT IN STABLE CONDITION.
[2018-12-01 08:00] VITALS: BP 128/72
--- NOTE | 2018-12-01 08:29 | NUR ---
PATIENT HAS BEEN SCREENED AND CATEGORIZED HIGH NUTRITION RISK. PATIENT WILL BE SEEN WITHIN 1-2 DAYS OF ADMISSION. 12/01/18-12/02/[address]
[2018-12-01] MEDS: LACTOBACILLUS RHAMNOSUS GG 1 EACH CAP PO SCH (09:33)
--- NOTE | 2018-12-01 09:35 | NUR ---
ADMINISTERED MEDS TO PT ORDERED. PT NPO EXCEPT MEDS. PT ASKING IF HE CAN EAT. INFORMED HIM THAT HE IS NPO EXCEPT MEDS AT THIS TIME. PT STATES THAT MD TOLD HIM HE CAN HAVE FOOD. INFORMED HIM THAT WILL CHECK WITH MD AND GET BACK TO PT. VERBALIZED UNDERSTANDING. PT HAS WOUND ON THE LEFT LEG. HAS VERY STRONG FOUL SMELL. DRESSING ON THE LEFT LEG. HAS WOUND CONSULT. WILL CONTINUE TO MONITOR PT.
--- NOTE | 2018-12-01 11:24 | NUR ---
12/01/18 RD INITIAL ASSESSMENT COMPLETED PLEASE REFER TO NUTRITION ASSESSMENT UNDER CARE ACTIVITY FOR ESTIMATED NUTRITIONAL NEEDS. 1. RECOMMEND REGULAR DIET WHEN NPO CONDITION RESOLVE. 2. RD TO FOLLOW-UP 3-5 DAYS, MODERATE RISK MORENITA BUTTERFIELD RD
--- NOTE | 2018-12-01 11:35 | NUR ---
WOUND CARE EVALUATION NOTE: REASON FOR EVALUATION: LEFT LOWER LEG SARCOMA MASS WOUND SKIN ASSESSMENT DONE WITH THIS 38 Y/O MALE PT ADMITTED FROM HOME TO [facility] WITH INITIAL DX OF LEFT LEG PAIN. PAST MEDICAL HX INCLUDES LEFT TIBIAL SARCOMA. ALL ABOVE INFORMATION OBTAINED FROM ADMISSION H&P. AND PT. PT IS AAX3. PT. SHOULD HAVE CHEMOTHERAPY TO [facility] AND NEVER FOLLOW UP. PT. QUESTION HOW LONG THE LEG INFECTION WILL HEALED. EXPLAIN TO PT. DIFFERENT BETWEEN SARCOMA MASS AND WOUND INFECTION. PT. VERBALIZES UNDERSTANDING. SKIN IS WARM AND DRY, BLE HAIR GROWTH. BILATERAL DORSAL PEDAL PULSES PRESENT AND NORMAL. CAPILLARY REFILLED < 2 SEC. X 10 TOES. PLAN OF CARE DISCUSSED WITH PRIMARY RN AND PT. PT. VERBALIZES UNDERSTANDING. INTEGUMENTARY: -LEFT LOWER LEG SARCOMA MASS 17.5X25.5CM WITH 10 CM TALL, OOZING PURULENT DRAINAGE WITH STRONG ODOR, GIOVANY WOUND SKIN INTACT, PAIN2/10 RECOMMENDATIONS: -SURGEON TO CONSULT. -CLEANSE LEFT LOWER LEG SARCOMA MASS WITH NS. PAT DRY, APPLY XEROFORM, AND COVER WITH ABD PAD, WRAP WITH KERLIX ROLL Q3 DAYS AND PRN IF SOILING. -OFFLOAD BILATERAL HEELS BY PLACING PILLOWS UNDER CALVES UNLESS OTHERWISE CONTRAINDICATED -TURN AND REPOSITION Q2H, OFFLOAD LEFT SCAPULAR BY TURNING RIGHT AND LEFT -CONTINUE TO FOLLOW RD RECOMMENDATIONS ALL ABOVE RECOMMENDATIONS DISCUSSED WITH PRIMARY RN WILL FOLLOW UP PT Q7-10 DAYS. PLEASE CONTACT WOUND CARE NURSE FOR ANY QUESTION AND CHANGE OF WOUND CONDITION
--- NOTE | 2018-12-01 13:06 | NUR ---
CHECKED ON PT. ATE HIS LUNCH. PT ON CARDIAC DIET, MANAGER LIFE WITH PT. PT OFF THE UNIT FOR SCAN. WILL BE BACK ON 30 MIN. PT STABLE AT THIS TIME.
[2018-12-01] MEDS: MORPHINE SULFATE 2 MG/ML SYR IVP PRN ×2 (14:11→23:30)
[2018-12-01 16:00] VITALS: BP 115/69
[2018-12-01] MEDS ORDERED: SODIUM FERRIC GLUCONATE 125 MG in NACL 0.9% 100 ML IV SCH (16:00)
[2018-12-01] MEDS: NACL 0.45% 1,000 ML IV SCH ×2 (16:08→23:25)
--- NOTE | 2018-12-01 16:12 | NUR ---
ADMINISTERED MEDS TO PT ORDERED. PT SLEEPING AT THIS TIME. NO SIGN OF DISTRESS NOTED. [email or web address] CALLED AND ASKING PT TO DRINK LOT OF WATER. INFORMED PT. PROVIDED WATER . WILL CONTINUE TO MONITOR PT.
--- NOTE | 2018-12-01 17:26 | NUR ---
ADMINISTERED MEDS TO PT ORDERED. BS 102 NOTED. PT WITH NUCLEAR MED TECH. OFF THE UNIT WITH NUCLEAR MEDS APPAREL SALES LEADER. PT STABLE AT THIS TIME.
--- NOTE | 2018-12-01 19:15 | NUR ---
ENDORSED PT TO PM NURSE AT BEDSIDE. PT IN STABLE CONDITION.
--- NOTE | 2018-12-01 19:16 | NUR ---
RECEIVED PT FROM AM NURSE. PT HAS LEFT LEG MASS. PT AWAKE,O X4. AMBULATORY . PT WITH IVF INFUSING ON LEFT HAND PATENT AND INTACT. POC REVIEWED. PLACED ON LOW BED POSITION, PLACED CALL LIGHT WITHIN REACH
--- NOTE | 2018-12-01 22:20 | NUR ---
DR. RAMOS AT BEDSIDE SAW PT WITH THE LEG MASS ON RIGHT LEG. DRESSED THE WOUND.
--- NOTE | 2018-12-01 22:22 | NUR ---
DR. RAMOS ORDERED FOR CT SCAN PELVIS ABDOMEN AND CHEST W./ CONTRAST. CONSENT SIGNED BY AND PT
[2018-12-02] VITALS: BP 122/71
[2018-12-02] MEDS ORDERED: PIPERACILLIN/TAZOBACTAM 3.375 GM VIAL IV ONE ×2 (00:27→06:46)
[2018-12-02] MEDS: PIPER/TAZO 3.375GM/D5W PREMIX 50 ML IV SCH ×3 (00:39→12:28)
[2018-12-02] MEDS: BLOOD GLUCOSE MONITORING 1 DEV DEV FS SCH ×2 (06:26→11:59)
[2018-12-02] MEDS: NACL 0.45% 1,000 ML IV SCH (06:41)
--- NOTE | 2018-12-02 07:19 | NUR ---
ENDORSED TO AM SHIFT NURSE FOR CONTINUITY OF CARE. FOR CT SCAN AD AND PELVIS W/ CONTRAST. INSERTED A LEFT AC ON FOR THE IV CONTRAST.
--- NOTE | 2018-12-02 07:20 | NUR ---
RECEIVED REPORT FROM PM NURSE AT BEDSIDE. PT SLEEPING AT THIS TIME. PT HAS LF AC 20 G . NEW IV ACCESS FOR CONTRAST INSERTION. PT IS NPO FOR CT OF PELVIS , ABD AND CHEST WITH CONTRAST . CONSENT SIGNED BY PT AND IS ON THE FILE. IVF INFUSING WELL. UPDATED BOARD. PER PM NURSE , PT SEEN BY DR. RAMOS. CHANGED THE DRESSING ON THE PATIENT. NO SIGN OF DISTRESS NOTED . WILL CONTINUE TO MONITOR PT.
[2018-12-02 07:26] LABS: BASOPHILS # (AUTO) 0.1 K/uL (0.00-0.22); BASOPHILS % (AUTO) 0.5 % (0.0-2.0); EOSINOPHILS # (AUTO) 0.2 K/uL (0-0.4); EOSINOPHILS % (AUTO) 1.4 % (0.0-4.0); HEMATOCRIT 26.7 % (36-52); HEMOGLOBIN 8.3 g/dL (12.0-18.0); LYMPHOCYTES # (AUTO) 1.3 K/uL (2.0-11.5); LYMPHOCYTES % (AUTO) 11.9 % (20.5-51.1); MEAN CORPUSCULAR HEMOGLOBIN 21 pg (27-31); MEAN CORPUSCULAR HGB CONC 31 g/dL (33-37); MEAN CORPUSCULAR VOLUME 67.2 fL (80-94); MONOCYTES # (AUTO) 0.9 K/uL (0.8-1.0); MONOCYTES % (AUTO) 7.6 % (1.7-9.3); NEUTROPHILS # (AUTO) 8.8 K/uL (1.8-7.7); NEUTROPHILS % (AUTO) 78.6 % (42.2-75.2); PLATELET COUNT (AUTO) 580 K/uL (140-450); RED BLOOD CELL COUNT(AUTO) 3.97 MIL/uL (4.20-6.10); RED CELL DISTRIBUTION WIDTH 17.4 % (11.6-13.7); WHITE BLOOD COUNT (AUTO) 11.2 K/uL (4.8-10.8)
[2018-12-02 07:42] LABS: ANION GAP 12.3 (8-16); CARBON DIOXIDE 27.9 mmol/L (21-32); CREATININE 0.9 mg/dL (0.7-1.3); POTASSIUM 4.2 mmol/L (3.5-5.1)
[2018-12-02 07:48] LABS: MAGNESIUM 1.9 mg/dL (1.8-2.4); PHOSPHORUS 3.6 mg/dL (2.5-4.9)
[2018-12-02 08:00] VITALS: BP 120/73
[2018-12-02] MEDS ORDERED: FERROUS SULFATE 325 MG TABEC PO SCH (08:00)
[2018-12-02 08:35] LABS: FOLIC ACID 6.4 ng/mL (>3.0)
[2018-12-02] MEDS: LACTOBACILLUS RHAMNOSUS GG 1 EACH CAP PO SCH (09:20)
--- NOTE | 2018-12-02 09:25 | NUR ---
ADMINISTERED MEDS TO PT ORDERED. CALLED CT FOR THE CT. INFORMED THAT PT HAS IV ACCESS FOR THE CONTRAST ADMINISTRATION. PT TO GO WITH CT FOR THE PROCEDURE TO BE DONE. PT NPO. STABLE. WILL CONTINUE TO MONITOR PT.
--- NOTE | 2018-12-02 11:33 | NUR ---
CHECKED ON PT. SLEEPING ON HIS BED COMFORTABLY. NO SIGN OF DISTRESS NOTED. WILL CONTINUE TO MONITOR PT.
[2018-12-02] MEDS ORDERED: FER325 PO (11:52)
--- NOTE | 2018-12-02 11:52 | NUR ---
Faxed face sheet, 's order and transfer back agreement to [facility] fax # .
--- NOTE | 2018-12-02 12:47 | NUR ---
Ann from [facility] transfer center called and patient is going to room 429. Nurses station number .
--- NOTE | 2018-12-02 12:58 | NUR ---
Transportation arranged with [facility] patient will be picked up from room 113 A at 1400 and transferred to [facility] to room 429. Tristen Coelho and Jessica COELHO informed.
--- NOTE | 2018-12-02 13:15 | NUR ---
REPORT GIVEN TO TRINI WREN FROM [facility]. DRESSING CHANGED ON PT ANS PICTURES TAKEN. TOLERATED WELL. NO SIGN OF DISTRESS. PT TO BE TRANSFERRED TO [facility] FOR HIGHER LEVEL OF CARE. TO BE PICKED UP BY [facility] AT 1400.
--- NOTE | 2018-12-02 14:45 | NUR ---
PT LEFT WITH [facility], PT STABLE AND FULL CODE. PT DISCHARGED TO [facility] FOR HIGHER LEVEL OF CARE. PIC TAKEN . PT WALKED TO THE [facility]. STATES WILL TALK TO FAMILY MEMBER HIMSELF ABOUT HIS TRANSFERRING TO THE [facility]. PT SENT WITH IV ACCESS ON LF AC AND WRIST 20 G.
[2018-12-02] MEDS ORDERED: PIPE50SO2 IV (17:25)
[2018-12-02] MEDS ORDERED: LACT10CA1 PO (17:25)
== END 2018-12-02 14:45 | disposition short-term general hospital (02) | DRG 542 ==
LOC: MED 18:03 → MTU 21:41
PROVIDERS: ADMIT General Practice; ATTEND General Practice
PROC: 30233N1 Transfusion of Nonautologous Red Blood Cells into Peripheral Vein, Percutaneous Approach (ICD-10-PCS; principal; 2018-12-01)
DX: C40.22 Malignant neoplasm of long bones of left lower limb (principal); E43 Unspecified severe protein-calorie malnutrition; D68.59 Other primary thrombophilia; E11.65 Type 2 diabetes mellitus with hyperglycemia; E11.69 Type 2 diabetes mellitus with other specified complication; F15.10 Other stimulant abuse, uncomplicated; D50.9 Iron deficiency anemia, unspecified; E66.3 Overweight; Z68.28 Body mass index [BMI] 28.0-28.9, adult; Z79.4 Long term (current) use of insulin; Z79.899 Other long term (current) drug therapy; Z59.0 Homelessness; Z91.19 Patient's noncompliance with other medical treatment and regimen
CPT/HCPCS: 36415; 71045; 71260; 78315; 80048; 80053; 80305; 81003; 82150; 82607; 82746; 82948; 83036; 83540; 83605; 83690; 83735; 83880; 84100; 84443; 84484; 85025; 85045; 85610; 85730; 86886; 86900; 86901; 86920; 87040; 87070; 87075; 87081; 87186; 87205; 96361; 96374; 99285; J0696; J1815; J1885; J2270; J2543; J2916; J3490; J7030; J7042; J7060; P9016; Q9967

== ENCOUNTER 2021-05-27 18:51 | Inpatient (IN) | payer OTHER, MEDICAID, SELFPAY ==
[~2021-05-27] VITALS: Ht 195.6 cm; Wt 119.7 kg
[~2021-05-27 18:51] MED LIST changes: +APIX2.5 PO; -ASCO500T45 PO; +AZIT250T3 PO; -DOCU-299 PO; -FER325 PO; -HYDR-5122 PO; -METR250T2 PO; -MULT-153 PO; -ROC2I IV; -SLIDE SUBQ
[2021-05-27 19:01] VITALS: BP 156/80
--- NOTE | 2021-05-27 19:06 | NUR ---
pt to [facility]
[2021-05-27] MEDS ORDERED: KETOROLAC 15 MG/ML VIAL IVP ONE (19:15)
[2021-05-27] MEDS ORDERED: NACL 0.9% 1,000 ML IV ONE ×2 (19:15→23:45)
[2021-05-27] MEDS ORDERED: ONDANSETRON 4 MG/2 ML VIAL IVP ONE (19:15)
[2021-05-27] MEDS ORDERED: MORPHINE SULFATE 2 MG/ML SYR IVP ONE (19:15)
[2021-05-27 19:22] LABS: APPEARANCE,URINE CLEAR (CLEAR); BILIRUBIN,URINE NEGATIVE (NEGATIVE); BLOOD, URINE TRACE-I (NEGATIVE); COLOR,URINE YELLOW (YELLOW); LEUKOCYTE ESTERASE ,URINE NEGATIVE (NEGATIVE); NITRITE, URINE NEGATIVE (NEGATIVE); UGLUCOSE 3+ (NEGATIVE)
[2021-05-27 19:26] LABS: YEAST,URINE Moderate /HPF (None Seen)
[2021-05-27 20:13] LABS: BASOPHILS % (AUTO) 0.6 % (0.0-2.0); EOSINOPHILS # (AUTO) 0.1 K/uL (0-0.4); EOSINOPHILS % (AUTO) 1.4 % (0.0-4.0); HEMATOCRIT 31.8 % (36-52); HEMOGLOBIN 9.9 g/dL (12.0-18.0); LYMPHOCYTES # (AUTO) 1.8 K/uL (2.0-11.5); LYMPHOCYTES % (AUTO) 29.3 % (20.5-51.1); MEAN CORPUSCULAR HEMOGLOBIN 21 pg (27-31); MEAN CORPUSCULAR HGB CONC 31 g/dL (33-37); MEAN CORPUSCULAR VOLUME 68.7 fL (80-94); MONOCYTES # (AUTO) 0.5 K/uL (0.8-1.0); MONOCYTES % (AUTO) 8.9 % (1.7-9.3); NEUTROPHILS # (AUTO) 3.7 K/uL (1.8-7.7); NEUTROPHILS % (AUTO) 59.8 % (42.2-75.2); PLATELET COUNT (AUTO) 155 K/uL (140-450); RED BLOOD CELL COUNT(AUTO) 4.62 MIL/uL (4.20-6.10); RED CELL DISTRIBUTION WIDTH 17.9 % (11.6-13.7); WHITE BLOOD COUNT (AUTO) 6.2 K/uL (4.8-10.8)
[2021-05-27 20:24] LABS: ALBUMIN 3.5 g/dL (3.4-5.0); CARBON DIOXIDE 26.2 mmol/L (21-32); CREATININE 0.9 mg/dL (0.6-1.3); POTASSIUM 3.2 mmol/L (3.5-5.1); TOTAL BILIRUBIN 0.8 mg/dL (0.0-1.0)
[2021-05-27] MEDS ORDERED: cefTRIAXone 1,000 MG in LIDOCAINE MPF 1% 2.1 ML IM ONE (20:30)
--- NOTE | 2021-05-27 20:50 | NUR ---
TO ER BED 6
--- NOTE | 2021-05-27 21:40 | NUR ---
PT BIB SELF FOR C/C ABDOMINAL PAIN / FOR 4 DAYS. REPORTS PAIN IS INTERMITTENT. DENIES N/V/D. PAIN DOES NOT RADIATE AT THIS TIME. NOTED WITH LEFT, ABOVE KNEE AMPUTATION (2018) D/T HX OF SARCOMA. MED HX: SARCOMA, DM, HTN ALLERGIES: NKA
--- NOTE | 2021-05-27 21:40 | NUR ---
IV 20G EST TO LAC.
[2021-05-27] MEDS ORDERED: KETOROLAC 15 MG/ML VIAL ONE (21:41)
[2021-05-27] MEDS ORDERED: cefTRIAXone 1,000 MG VIAL ONE (21:41)
[2021-05-27] MEDS ORDERED: ONDANSETRON 4 MG/2 ML VIAL ONE (21:42)
[2021-05-27] MEDS ORDERED: MORPHINE SULFATE 2 MG/ML SYR ONE (21:42)
[2021-05-27] MEDS ORDERED: ACETAMINOPHEN EXTRA STRENGTH 500 MG TAB PO ONE (21:50)
[2021-05-27] MEDS ORDERED: ACETAMINOPHEN EXTRA STRENGTH 500 MG TAB ONE (23:09)
--- NOTE | 2021-05-27 23:13 | NUR ---
ABG DRAWN AND HAND GIVEN TO RT TIM AT BEDSIDE.
[2021-05-27] MEDS ORDERED: POTASSIUM CHLORIDE 10 MEQ TABER PO ONE (23:20)
--- NOTE | 2021-05-27 23:20 | NUR ---
ROMANA OF NARES COLLECTED.
--- NOTE | 2021-05-28 | NUR ---
Patient appears to be resting comfortably in bed, WITH EYES CLOSED AND SNORING SOUNDS HEARD. Respirations even and unlabored. NO SIGNS OF DISTRESS AT THIS TIME. WILL CONTINUE TO MONITOR.
[2021-05-28] MEDS ORDERED: NACL 0.9% 1,000 ML IV ONE (02:10)
--- NOTE | 2021-05-28 02:10 | NUR ---
Patient appears to be resting comfortably in bed, EYES REMAIN CLOSED, SNORING SOUNDS HEARD, AROUSABLE TO VOICE. Respirations even and unlabored. DENIES PAIN OR DISCOMFORT. WILL CONTINUE TO MONITOR.
--- NOTE | 2021-05-28 04:12 | NUR ---
Patient appears to be resting comfortably in bed, EYES CLOSED, SNORING SOUNDS HEARD, AROUSABLE TO VOICE. Vital Signs within normal limits. Respirations even and unlabored. ALL NEEDS MET AT THIS TIME. WILL CONTINUE TO MONITOR.
--- NOTE | 2021-05-28 07:19 | NUR ---
REPORT GIVEN TO TRINI POWELL FOR CONTINUITY OF CARE.
[2021-05-28] MEDS ORDERED: BLOOD GLUCOSE MONITORING 1 DEV DEV FS ONE (07:30)
[2021-05-28] MEDS ORDERED: ACETAMINOPHEN 325 MG TAB PO PRN (07:35)
[2021-05-28] MEDS ORDERED: POTASSIUM CHLORIDE 10 MEQ TABER PO PRN (07:35)
[2021-05-28] MEDS ORDERED: DOCUSATE SODIUM 100 MG GELCAP PO PRN (07:35)
[2021-05-28] MEDS ORDERED: guaiFENesin DM 200/20 MG-10 ML 10 ML UDC PO PRN (07:35)
[2021-05-28] MEDS ORDERED: ZOLPIDEM 5 MG TAB PO PRN (07:35)
[2021-05-28] MEDS ORDERED: ONDANSETRON 4 MG/2 ML VIAL IM/IVP PRN (07:35)
--- NOTE | 2021-05-28 08:01 | NUR ---
JANICEEDWARD HAND [phone]
--- NOTE | 2021-05-28 08:12 | NUR ---
Patient appears to be resting comfortably in bed. Vital Signs within normal limits. Respirations even and unlabored.
[2021-05-28] MEDS: NACL 0.9% 1,000 ML IV SCH (08:29)
[2021-05-28] MEDS: INSULIN LISPRO SLIDING SCALE 100 UNITS/ML VIAL SUBQ PRN ×3 (08:31→21:37)
[2021-05-28] MEDS ORDERED: FLUCONAZOLE 200 MG/NS PREMIX 100 ML IV SCH (09:00)
--- NOTE | 2021-05-28 09:19 | NUR ---
X-Ray at bedside.
[2021-05-28] MEDS: PANTOPRAZOLE 40 MG TABEC PO SCH (09:34)
--- NOTE | 2021-05-28 09:48 | NUR ---
ORAL CARE PROVIDED FOR PATIENT AT THIS TIME.
[2021-05-28 10:57] LABS: PROTHROMBIN TIME 10.4 secs (10.8-13.4)
[2021-05-28 11:32] LABS: CHOL/HDL RATIO 5.1 (1-4.5); FREE T4 (FREE THYROXINE) 1.01 ng/dL (0.76-1.46); MAGNESIUM 1.7 mg/dL (1.8-2.4); PHOSPHORUS 2.9 mg/dL (2.5-4.9); THYROID STIMULATING HORMONE 0.94 uIU/mL (0.34-3.74)
[2021-05-28 12:07] LABS: BARBITURATE, URINE NEGATIVE ng/ml (NEG <=200)
[2021-05-28 12:09] LABS: BENZODIAZEPINE, URINE NEGATIVE ng/mL (NEG <=200); CANNABINOID, URINE NEGATIVE ng/mL (NEG <=50); COCAINE, URINE NEGATIVE ng/mL (NEG <=300); OPIATE, URINE NEGATIVE ng/mL (NEG <=2000); PHENCYCLIDINE SCREEN,URINE NEGATIVE ng/mL (NEG <=25)
--- NOTE | 2021-05-28 12:09 | NUR ---
GLUCOSE AT 269, 6 UNITS HUMALOG GIVEN FOR GLUCOSE CONTROL LUNCH PROVIDED AT THIS TIME.
--- NOTE | 2021-05-28 19:12 | NUR ---
REPORT RECEIVED FROM TRINI POWELL FOR CONTINUATION OF PATIENT CARE. AT THIS TIME.
--- NOTE | 2021-05-28 19:18 | NUR ---
Pt report given to DAGO FELIZ. Transfer of care at this time.
--- NOTE | 2021-05-28 19:25 | NUR ---
PATIENT DENIES ANY NAUSEA, DIZZYNESS, OR SOB.
--- NOTE | 2021-05-28 19:25 | NUR ---
PATIENT LAYING IN BED W HOB ELEVATED, X2 SIDERAILS UP FOR PATIENT SAFETY. PATIENT REPORTS ABD PAIN 7/10, BOWEL SOUNDS PRESENT, ABDOMEN TENDER TO TOUCH. PATIENT CONNECTED TO MONITOR W VSS. BREATHING EVEN AND UNLABORED. 0.9 NS FLUIDS RUNNING AT 60ML/HR W 340 ML VTBI. NAD NOTED, WILL CONTINUE TO MONITOR.
--- NOTE | 2021-05-28 19:35 | NUR ---
PATIENT EATING DINNER AT THIS TIME.
[2021-05-28] MEDS ORDERED: cefTRIAXone 1,000 MG VIAL ONE (20:07)
--- NOTE | 2021-05-28 21:05 | NUR ---
PATIENT REPORTS PAIN IMPROVEMENT.
--- NOTE | 2021-05-28 21:10 | NUR ---
PATIENT D/C OWN IV. NEW IV 20G INSERTED TO L HAND, CATHETER INTACT, 0.9 NS FLUIDS RUNNING AT 60ML/HR.
[2021-05-28] MEDS: HYDROcodone/APAP 7.5/325 MG 1 TAB PO PRN (21:38)
--- NOTE | 2021-05-28 23:10 | NUR ---
PATIENT LAYING IN BED W EYES CLOSED, HOB ELEVATED W X2 SIDE RAILS UP. BED LOCKED IN LOWEST POSITION. PATIENT CONNECTED TO MONITOR W VSS. 0.9 NS RUNNING AT 60ML/HR W 200 ML VTBI. NAD NOTED, WILL CONTINUE TO MONITOR.
--- NOTE | 2021-05-29 01:00 | NUR ---
PATIENT LAYING IN BED W EYES CLOSED IN SUPINE POSITION, HOB ELEVATED W X2 SIDE RAILS UP FOR PATIENT SAFETY. BED LOCKED IN LOWEST POSITION. PATIENT CONNECTED TO MONITOR W VSS. 0.9 NS RUNNING AT 60ML/HR. NAD NOTED, WILL CONTINUE TO MONITOR.
--- NOTE | 2021-05-29 02:50 | NUR ---
MRSA SAMPLE COLLECTED FROM PATIENT NARES AND SENT TO LAB.
--- NOTE | 2021-05-29 03:54 | NUR ---
PATIENT LAYING IN BED W EYES CLOSED IN SUPINE POSITION, HOB ELEVATED W X2 SIDE RAILS UP FOR PATIENT SAFETY. BED LOCKED IN LOWEST POSITION. BREATHING EVEN AND UNLABORED. PATIENT CONNECTED TO MONITOR W VSS. NAD NOTED, WILL CONTINUE TO MONITOR.
--- NOTE | 2021-05-29 05:03 | NUR ---
PATIENT LAYING IN BED IN SUPINE POSITION, HOB ELEVATED W X2 SIDE RAILS UP FOR PATIENT SAFETY. BED LOCKED IN LOWEST POSITION. BREATHING EVEN AND UNLABORED. PATIENT REPORTS ABDOMINAL PAIN IMPROVEMENT TO 3/10. PROVIDED PATIENT W URINAL PER PATIENT REQUEST. PATIENT CONNECTED TO MONITOR W VSS. NAD NOTED, WILL CONTINUE TO MONITOR.
--- NOTE | 2021-05-29 06:08 | NUR ---
SPOKE W PHARMACY, PER PHARMACY TO KEEP ORDER OF 0.9NS 1000ML @ 60ML/HR CONTINUOUS.
[2021-05-29 06:28] LABS: BASOPHILS % (AUTO) 0.8 % (0.0-2.0); EOSINOPHILS # (AUTO) 0.1 K/uL (0-0.4); EOSINOPHILS % (AUTO) 2.6 % (0.0-4.0); HEMATOCRIT 28.8 % (36-52); HEMOGLOBIN 8.7 g/dL (12.0-18.0); LYMPHOCYTES # (AUTO) 1.5 K/uL (2.0-11.5); LYMPHOCYTES % (AUTO) 38.4 % (20.5-51.1); MEAN CORPUSCULAR HEMOGLOBIN 21 pg (27-31); MEAN CORPUSCULAR HGB CONC 30 g/dL (33-37); MEAN CORPUSCULAR VOLUME 69.4 fL (80-94); MONOCYTES # (AUTO) 0.3 K/uL (0.8-1.0); MONOCYTES % (AUTO) 8.7 % (1.7-9.3); NEUTROPHILS % (AUTO) 49.5 % (42.2-75.2); PLATELET COUNT (AUTO) 114 K/uL (140-450); RED BLOOD CELL COUNT(AUTO) 4.15 MIL/uL (4.20-6.10)
[2021-05-29] MEDS: NACL 0.9% 1,000 ML IV SCH ×2 (06:33→17:35)
[2021-05-29 07:05] LABS: ANION GAP 9.1 (8-16); CREATININE 0.7 mg/dL (0.6-1.3); POTASSIUM 3.1 mmol/L (3.5-5.1)
--- NOTE | 2021-05-29 07:17 | NUR ---
Pt report given to TRINI NICHOLS. Transfer of care at this time.
--- NOTE | 2021-05-29 07:17 | NUR ---
REPORT RECEIVED FROM DAGO FOR CONTINUITY OF CARE. A&OX4. IV SITE LT HAND 20G, INFUSING NS 60 ML/HR. SKIN WARM AND DRY. CALL LIGHT WITHIN REACH. SAFETY PRECAUTIONS IN PLACE. BED LOCKED IN LOWEST POSITION. WILL CONTINUE TO MONITOR.
[2021-05-29 08:08] LABS: T4 (THYROXINE) 9.1 ug/dL (4.5-12.0)
[2021-05-29] MEDS: PANTOPRAZOLE 40 MG TABEC PO SCH (08:11)
[2021-05-29] MEDS: INSULIN LISPRO SLIDING SCALE 100 UNITS/ML VIAL SUBQ PRN ×3 (08:16→22:20)
--- NOTE | 2021-05-29 08:16 | NUR ---
BLOOD SUGAR 222. 4 UNITS OF HUMALOG GIVEN
--- NOTE | 2021-05-29 08:17 | NUR ---
K 3.1ZARA PROVIDED.
--- NOTE | 2021-05-29 08:22 | NUR ---
PT PROVIDED WITH BREAKFAST TRAY
--- NOTE | 2021-05-29 09:11 | NUR ---
DR MARROQUIN, A AT BEDSIDE EXAMINING PT
--- NOTE | 2021-05-29 12:50 | NUR ---
Patient will be admitted to care of DR MARROQUIN. Admited to TELEMETRY. Will go to room 111B. Belongings list completed. Report to FAMILIA FELIZ.
[2021-05-29 13:00] VITALS: BP 136/67
--- NOTE | 2021-05-29 13:00 | NUR ---
PATIENT ARRIVED FROM ER. NO DISTRESS NOTED. ABLE TO GET TO RUST BED, WHEELCHAIR AT BEDSIDE. AAOX4, CALM, COOPERATIVE, APPROPRIATE AFFECT. IV SITE INTACT, PATENT, AND ON SALINE LOCK. LEFT AKA NOTED. ON ROOM AIR. ORIENTED PATIENT TO ROOM AND CALL LIGHT. SAFETY MEASURES IN PLACE, CALL LIGHT WITHIN REACH. WILL CONTINUE TO MONITOR.
[2021-05-29] MEDS ORDERED: DEXTROSE 50% 50 ML SYR IVP PRN (15:30)
[2021-05-29 16:00] VITALS: BP 124/72
[2021-05-29] MEDS: BLOOD GLUCOSE MONITORING 1 DEV DEV FS SCH ×2 (16:30→21:00)
--- NOTE | 2021-05-29 17:09 | NUR ---
PATIENT HAS BEEN SCREENED AND CATEGORIZED LOW NUTRITION RISK. PATIENT WILL BE SEEN WITHIN 7 DAYS OF ADMISSION. 06/03/[address]
--- NOTE | 2021-05-29 17:35 | NUR ---
SCHEDULED MEDICATIONS DUE GIVEN. WILL CONTINUE TO MONITOR.
--- NOTE | 2021-05-29 19:19 | NUR ---
RECEIVED REPORT FROM GEAR TOOTH LAPPING MACHINE OPERATOR NURSE FOR CONTINUITY OF CARE. PATIENT IN STABLE CONDITION.
--- NOTE | 2021-05-29 19:20 | NUR ---
RECEIVED REPORT FROM FAMILIA FELIZ DAYSHIFT NURSE AT BEDSIDE FOR CONTINUITY OF CARE, PT IN STABLE CONDITION. HE IS LYING IN BED AWAKE AND ALERT ON ROOM AIR WITH NORMAL SALINE RUNNING AT 60 MLS/HR VIA LEFT HAND 20G. HE HAS NO C/O VOICED AT THIS TIME.
[2021-05-29 20:00] VITALS: BP 135/77
--- NOTE | 2021-05-29 20:00 | NUR ---
PT LYING IN BED AOX 4 HE IS ON ROOM AIR WITH LEFT HAND RUNNING NORMAL SALINE AT 60MLS/HR. V/S FOLLOWS: T 97.6 P 104 R 20 B/P 135/77 02 94% ON ROOM AIR. FINGERSTICK IS 224. ALL UNIVERSAL FALLS PRECAUTIONS IN PLACE.
--- NOTE | 2021-05-29 21:35 | NUR ---
PT GIVEN ORDERED ROCEPHIN, EDUCATION REGARDING MEDICATION AND ITS PURPOSES PROVIDED AT BEDSIDE, PT ALSO GIVEN 4 UNITS OF HUMALOG PER S/S. ALL REQUESTED NEEDS ATTENDED BY STAFF.
[2021-05-29] MEDS: HYDROcodone/APAP 7.5/325 MG 1 TAB PO PRN (22:23)
--- NOTE | 2021-05-29 22:30 | NUR ---
PT IN BED WITH C/O OF MODERATE 5/10 PAIN IN ABDOMEN, PT GIVEN 1 TAB OF NORCO 7.5/325MG ORDERED. ALL REQUESTED NEEDS ATTENDED, AND ALL UNIVERSAL FALLS PRECAUTIONS IN PLACE.
[2021-05-30] VITALS: BP 128/72
--- NOTE | 2021-05-30 | NUR ---
T 97.0 P 105 R 20 B/P 128/72 02 95% ON ROOM AIR . IV SITE INTACT. NEW BAG OF NORMAL SALINE HUNG AND RUNNING ORDERED. PT SLEEPING IN BED ALL UNIVERSAL FALLS PRECAUTIONS IN PLACE.
[2021-05-30 04:00] VITALS: BP 138/80
--- NOTE | 2021-05-30 04:00 | NUR ---
PT IN BED ASLEEP V/S FOLLOWS: T 97.6 P 104 R 20 B/P 138/80 02 95% ON ROOM AIR. FLUIDS RUNNING ORDERED
--- NOTE | 2021-05-30 06:30 | NUR ---
FINGERSTICK IS 178, GIVEN 2 UNITS OF HUMALOG PER S/S.
[2021-05-30] MEDS: BLOOD GLUCOSE MONITORING 1 DEV DEV FS SCH ×4 (06:37→20:58)
[2021-05-30] MEDS: INSULIN LISPRO SLIDING SCALE 100 UNITS/ML VIAL SUBQ PRN ×4 (06:37→20:52)
[2021-05-30 07:23] LABS: ANION GAP 9.2 (8-16); CREATININE 0.7 mg/dL (0.6-1.3); POTASSIUM 3.2 mmol/L (3.5-5.1)
[2021-05-30 07:28] LABS: EOSINOPHILS # (AUTO) 0.1 K/uL (0-0.4); EOSINOPHILS % (AUTO) 2.9 % (0.0-4.0); HEMATOCRIT 29.1 % (36-52); HEMOGLOBIN 9.1 g/dL (12.0-18.0); LYMPHOCYTES # (AUTO) 1.6 K/uL (2.0-11.5); LYMPHOCYTES % (AUTO) 40.2 % (20.5-51.1); MEAN CORPUSCULAR HEMOGLOBIN 21 pg (27-31); MEAN CORPUSCULAR HGB CONC 31 g/dL (33-37); MEAN CORPUSCULAR VOLUME 68.7 fL (80-94); MONOCYTES # (AUTO) 0.4 K/uL (0.8-1.0); MONOCYTES % (AUTO) 9.2 % (1.7-9.3); NEUTROPHILS # (AUTO) 1.9 K/uL (1.8-7.7); NEUTROPHILS % (AUTO) 46.7 % (42.2-75.2); PLATELET COUNT (AUTO) 117 K/uL (140-450); RED BLOOD CELL COUNT(AUTO) 4.23 MIL/uL (4.20-6.10); RED CELL DISTRIBUTION WIDTH 17.6 % (11.6-13.7)
[2021-05-30 08:00] VITALS: BP 136/88
--- NOTE | 2021-05-30 08:00 | NUR ---
RECEIVED REPORT FROM ESTIMATING ENGINEER AT BEDSIDE FOR CONTINUITY OF CARE. PATIENT ALERT AWAKE ORIENTED X 4, NOT IN ANY DISTRESS NOTED. INITIAL ASSESSMENT INITIATED. WITH IVF ON GOING AND INFUSING WELL. ON MONITOR SHOWS SR. DENIES PAIN. NEEDS ATTENDED. WILL CONTINUE TO MONITOR.
[2021-05-30] MEDS: PANTOPRAZOLE 40 MG TABEC PO SCH (08:46)
--- NOTE | 2021-05-30 09:00 | NUR ---
DUE MEDS GIVEN. DENIES PAIN AT THIS TIME. WILL CONTINUE TO MONITOR.
[2021-05-30] MEDS: NACL 0.9% 1,000 ML IV SCH ×2 (09:35→16:39)
[2021-05-30] MEDS ORDERED: POTASSIUM CHLORIDE 10 MEQ TABER PO SCH (10:00)
[2021-05-30 12:00] VITALS: BP 140/81
[2021-05-30 16:00] VITALS: BP 129/76
--- NOTE | 2021-05-30 19:25 | NUR ---
WITH ORDER FROM DR. FLOWERS OF ABDOMINAL US, INSTRUCTED PATIENT TO BE NPO. REPORT GIVEN TO TRINI YOUNG AT BEDSIDE FOR CONTINUITY OF CARE.
--- NOTE | 2021-05-30 19:26 | NUR ---
RECEIVED PT SLEEPING, EASILY AROUSABLE, AAOX4, ABLE TO MAKE NEEDS KNOWN, IVF INFUSING WELL, DENIES ANY PAIN, NO SOB NOTED, PLAN OF CARE DISCUSSED, HX OF LEFT AKA, SAFETY MEASURES IN PLACE, CALL LIGHT WITHIN REACH.
[2021-05-30 20:00] VITALS: BP 136/76
--- NOTE | 2021-05-30 21:00 | NUR ---
BLOOD SUGAR CHECKED WITH 225 RESULT, COVERAGE GIVEN, BEDTIME SNACK PROVIDED, DUE ROCEPHIN IVPB ADMINISTERED, ALL NEEDS ATTENDED.
--- NOTE | 2021-05-31 00:30 | NUR ---
PT SLEEPING, NO SIGNS OF DISTRESS, IVF INFUSING WELL, MAINTAINED ON NPO AFTER MIDNIGHT FOR ULTRASOUND OF ABDOMEN, CONTINUE TO MONITOR CLOSELY.
[2021-05-31 04:00] VITALS: BP 125/67
[2021-05-31] MEDS: INSULIN LISPRO SLIDING SCALE 100 UNITS/ML VIAL SUBQ PRN (06:08)
--- NOTE | 2021-05-31 06:20 | NUR ---
PT EASILY AROUSABLE, DENIES ANY PAIN, BLOOD SUGAR CHECKED WITH 195 RESULT, COVERAGE GIVEN, IVF INFUSING WELL, MONITORED CLOSELY.
[2021-05-31] MEDS: BLOOD GLUCOSE MONITORING 1 DEV DEV FS SCH (06:37)
[2021-05-31] MEDS: NACL 0.9% 1,000 ML IV SCH (06:54)
--- NOTE | 2021-05-31 07:26 | NUR ---
PT SLEEPING, NO SIGNS OF DISTRESS, REPORT GIVEN TO TRINI HARDING FOR CONTINUITY OF CARE.
[2021-05-31 07:42] LABS: EOSINOPHILS # (AUTO) 0.1 K/uL (0-0.4); EOSINOPHILS % (AUTO) 2.7 % (0.0-4.0); HEMOGLOBIN 9.5 g/dL (12.0-18.0); LYMPHOCYTES # (AUTO) 1.4 K/uL (2.0-11.5); MEAN CORPUSCULAR HEMOGLOBIN 21 pg (27-31); MEAN CORPUSCULAR HGB CONC 31 g/dL (33-37); MONOCYTES # (AUTO) 0.4 K/uL (0.8-1.0); MONOCYTES % (AUTO) 9.1 % (1.7-9.3); NEUTROPHILS # (AUTO) 2.2 K/uL (1.8-7.7); NEUTROPHILS % (AUTO) 53.2 % (42.2-75.2); PLATELET COUNT (AUTO) 129 K/uL (140-450); RED CELL DISTRIBUTION WIDTH 18.3 % (11.6-13.7); WHITE BLOOD COUNT (AUTO) 4.2 K/uL (4.8-10.8)
--- NOTE | 2021-05-31 08:00 | NUR ---
RECEIVED REPORT FROM TRAVEL TICKETING REVIEWER AT BEDSIDE FOR CONTINUITY OF CARE. INITIAL ASSESSMENT INITIATED. PATIENT ALERT AWAKE ORIENTED X4. NOT IN DISTRESS NOTED. WITH IVF ON GOING AND INFUSING WELL. DENIES PAIN AT THIS TIME.NEEDS ATTENDED. WILL CONTINUE TO MONITOR.
--- NOTE | 2021-05-31 09:00 | NUR ---
DUE EMDS GIVEN, SEEN BY DR. MARROQUIN WITH ORDER TO DC HOME.
[2021-05-31] MEDS: PANTOPRAZOLE 40 MG TABEC PO SCH (09:05)
[2021-05-31] MEDS ORDERED: LEVO500T98 PO (09:13)
--- NOTE | 2021-05-31 09:50 | NUR ---
DC PATIENT HOME VIA WHEELCHAIR WITH DC INSTRUCTION AND PRESCRIPTION GIVEN AND VERBALIZED UNDERSTANDING. IV REMOVED. IN STABLE CONDITION.
[2021-05-31 11:14] LABS: ANION GAP 15.4 (8-16); CARBON DIOXIDE 24.1 mmol/L (21-32); CREATININE 0.8 mg/dL (0.6-1.3); POTASSIUM 3.5 mmol/L (3.5-5.1)
[2021-05-31 11:19] LABS: TOTAL BILIRUBIN 0.7 mg/dL (0.0-1.0)
== END 2021-05-31 09:50 | disposition home or self-care (01) | DRG 871 ==
LOC: MED 18:51 → EEVIPCON 05-28 02:09 → MTU 05-28 02:09
PROVIDERS: ADMIT Preventive Medicine Preventive Medicine/Occupational Environmental Medicine; ATTEND Preventive Medicine Preventive Medicine/Occupational Environmental Medicine
DX: A41.9 Sepsis, unspecified organism (principal); E11.00 Type 2 diabetes mellitus with hyperosmolarity without nonketotic hyperglycemic-hyperosmolar coma (NKHHC); D61.818 Other pancytopenia; E87.1 Hypo-osmolality and hyponatremia; K62.89 Other specified diseases of anus and rectum; E87.6 Hypokalemia; F15.10 Other stimulant abuse, uncomplicated; E86.0 Dehydration; E78.5 Hyperlipidemia, unspecified; K74.60 Unspecified cirrhosis of liver; N30.90 Cystitis, unspecified without hematuria; B96.89 Other specified bacterial agents as the cause of diseases classified elsewhere; Z20.822 Contact with and (suspected) exposure to COVID-19; I10 Essential (primary) hypertension; E83.52 Hypercalcemia; Z85.830 Personal history of malignant neoplasm of bone; Z89.512 Acquired absence of left leg below knee; Z91.19 Patient's noncompliance with other medical treatment and regimen
CPT/HCPCS: 36415; 71045; 76700; 80048; 80053; 80305; 81001; 82150; 82728; 82948; 83036; 83540; 83605; 83690; 83735; 83880; 84100; 84436; 84439; 84443; 84479; 84484; 85025; 85384; 85610; 85651; 85730; 86140; 87040; 87081; 87086; 96365; 96375; 99291; J0696; J1815; J1885; J2270; J2405; J7060; Q0092

== ENCOUNTER 2021-06-12 01:28 | Emergency (ER) | payer OTHER, MEDICAID ==
[~2021-06-12] VITALS: Ht 195.6 cm; Wt 115.7 kg
[~2021-06-12 01:28] MED LIST changes: -APIX2.5 PO; -AZIT250T3 PO; +LEVO500T98 PO
[2021-06-12 01:58] VITALS: BP 129/78
== END 2021-06-12 03:54 | disposition left against medical advice (07) ==
LOC: MED 01:28
DX: R10.9 Unspecified abdominal pain (principal); Z53.21 Procedure and treatment not carried out due to patient leaving prior to being seen by health care provider

== ENCOUNTER 2022-02-19 13:18 | Inpatient (IN) | payer OTHER, MEDICAID ==
[~2022-02-19] VITALS: Ht 195.6 cm; Wt 124.3 kg
[~2022-02-19 13:18] MED LIST changes: +LEVO-315 PO; -LEVO500T98 PO
--- NOTE | 2022-02-19 13:38 | NUR ---
PT W/C ASSISTED TO BED 04.
[2022-02-19 13:42] VITALS: BP 134/65
--- NOTE | 2022-02-19 13:42 | NUR ---
BIB C/O 05/31 RLQ ABD PAIN, N/V X 1 WEEK. LAST BM 2 DAYS AGO. PMH: AMPUTATION OF ABOVE LEFT KNEE 3 YEARS AGO, DM. SKIN IS PINK/WARM/DRY; AAOX4 WITH EVEN AND STEADY GAIT; LUNGS CLEAR BL; HR EVEN AND REGULAR; PT DENIES ANY FEVER, CP, SOB, OR COUGH AT THIS TIME; PATIENT STATES PAIN 9F0/10 AT THIS TIME. PATIENT POSITIONED FOR COMFORT; HOB ELEVATED; BEDRAILS UP X2; BED DOWN. ER MD MADE AWARE OF PT STATUS.
--- NOTE | 2022-02-19 13:42 | NUR ---
Note undone in EDM - 02/19/22 at 1922 by MED1 BIB C/O 9/10 RLQ ABD PAIN, N/V X 1 WEEK. LAST BM 2 DAYS AGO. PMH: AMPUTATION OF ABOCVE LEFT LEG 3 YEARS AGO, DM. SKIN IS PINK/WARM/DRY; AAOX4 WITH EVEN AND STEADY GAIT; LUNGS CLEAR BL; HR EVEN AND REGULAR; PT DENIES ANY FEVER, CP, SOB, OR COUGH AT THIS TIME; PATIENT STATES PAIN 9F0/10 AT THIS TIME. PATIENT POSITIONED FOR COMFORT; HOB ELEVATED; BEDRAILS UP X2; BED DOWN. ER MADE AWARE OF PT STATUS.
--- NOTE | 2022-02-19 13:52 | NUR ---
BLOOD SUGAR 551 AT THIS TIME.
--- NOTE | 2022-02-19 14:19 | NUR ---
PTS , JANICE HAND [phone]. WAS AT BEDSIDE BUT STATED SHE NEEDS TO LEAVE. REQUESTING TO CALL FOR UPDATES.
[2022-02-19] MEDS: NACL 0.9% 1,000 ML IV SCH (14:33)
--- NOTE | 2022-02-19 14:33 | NUR ---
RAD AT BEDSIDE
[2022-02-19] MEDS ORDERED: ONDANSETRON 4 MG/2 ML VIAL IVP ONE (14:35)
[2022-02-19] MEDS ORDERED: MORPHINE SULFATE 4 MG/ML SYR IVP ONE (14:35)
[2022-02-19 15:11] LABS: BASOPHILS # (AUTO) 0.1 K/uL (0.00-0.22); BASOPHILS % (AUTO) 1.1 % (0.0-2.0); EOSINOPHILS # (AUTO) 0.1 K/uL (0-0.4); EOSINOPHILS % (AUTO) 1.5 % (0.0-4.0); HEMATOCRIT 22.6 % (36-52); LYMPHOCYTES # (AUTO) 1.7 K/uL (2.0-11.5); LYMPHOCYTES % (AUTO) 29.5 % (20.5-51.1); MEAN CORPUSCULAR HEMOGLOBIN 18 pg (27-31); MEAN CORPUSCULAR HGB CONC 28 g/dL (33-37); MEAN CORPUSCULAR VOLUME 64.7 fL (80-94); MONOCYTES # (AUTO) 0.4 K/uL (0.8-1.0); MONOCYTES % (AUTO) 7.3 % (1.7-9.3); NEUTROPHILS # (AUTO) 3.6 K/uL (1.8-7.7); NEUTROPHILS % (AUTO) 60.6 % (42.2-75.2); PLATELET COUNT (AUTO) 163 K/uL (140-450); RED BLOOD CELL COUNT(AUTO) 3.49 MIL/uL (4.20-6.10); RED CELL DISTRIBUTION WIDTH 19.1 % (11.6-13.7); WHITE BLOOD COUNT (AUTO) 5.9 K/uL (4.8-10.8)
[2022-02-19 15:17] LABS: HEMOGLOBIN 6.4 g/dL (12.0-18.0)
[2022-02-19 15:32] LABS: APPEARANCE,URINE CLEAR (CLEAR); BILIRUBIN,URINE NEGATIVE (NEGATIVE); BLOOD, URINE NEGATIVE (NEGATIVE); COLOR,URINE YELLOW (YELLOW); LEUKOCYTE ESTERASE ,URINE NEGATIVE (NEGATIVE); NITRITE, URINE NEGATIVE (NEGATIVE); UGLUCOSE 3+ (NEGATIVE)
[2022-02-19 15:49] LABS: ALBUMIN 2.6 g/dL (3.4-5.0); ANION GAP 15.3 (8-16); CARBON DIOXIDE 21.3 mmol/L (21-32); CREATININE 0.9 mg/dL (0.6-1.3); POTASSIUM 3.6 mmol/L (3.5-5.1); TOTAL BILIRUBIN 1.1 mg/dL (0.0-1.0)
[2022-02-19 15:57] LABS: PROTHROMBIN TIME 11.6 secs (10.8-13.4)
[2022-02-19] MEDS ORDERED: PANTOPRAZOLE 40 MG INJ VIAL IVP ONE (16:00)
--- NOTE | 2022-02-19 16:05 | NUR ---
COVID ROMANA SWAB DONE.
--- NOTE | 2022-02-19 16:44 | NUR ---
PT TAKEN TO CT.
[2022-02-19] MEDS ORDERED: PIPERACILLIN/TAZOBACTAM 3.375 GM in DEXTROSE 5% 50 ML IV ONE (17:30)
[2022-02-19] MEDS ORDERED: PIPERACILLIN/TAZOBACTAM 3.375 GM VIAL IV ONE ×2 (17:42→22:51)
[2022-02-19] MEDS: DEXT 5% / NACL 0.45% 1,000 ML IV SCH ×2 (18:16→20:37)
--- NOTE | 2022-02-19 19:30 | NUR ---
ASSUMED CARE OF PT AT THIS TIME. PT IN POSITION OF COMFORT. DENIES ANY PAIN. PT WANTS ICE CHIPS, WILL SPEAK WITH VSJeffery. NO S/S OF DISTRESS NOTED. PT AWAITING A BED ASSIGNMENT. ADMITTED TO TELE.
--- NOTE | 2022-02-19 19:33 | NUR ---
Pt report given to TRINI TRINH. Transfer of care at this time.
--- NOTE | 2022-02-19 20:24 | NUR ---
SPOKE WITH DR. JCARLOS KIMBLE TO GIVE PT ICE CHIPS.
[2022-02-19] MEDS ORDERED: LORazepam 2 MG/ML VIAL IVP PRN (21:00)
[2022-02-19] MEDS ORDERED: MORPHINE SULFATE 2 MG/ML SYR IVP PRN (21:00)
[2022-02-19] MEDS ORDERED: DEXTROSE 50% 50 ML SYR IVP PRN (21:00)
[2022-02-19] MEDS ORDERED: MORPHINE SULFATE 4 MG/ML SYR IVP PRN (21:00)
[2022-02-19] MEDS: PIPERACILLIN/TAZOBACTAM 3.375 GM in DEXTROSE 5% 50 ML IV SCH (23:22)
--- NOTE | 2022-02-20 01:12 | NUR ---
Note igor in ED - 02/20/22 at 0114 by [id number] Patient states he doesn't feel good and thinks his glucose is up. Accu check done with results of 340. Will let AUDIT CONTROL CLERK aware. No insulin orders at this time.
[2022-02-20] MEDS: INSULIN LISPRO SLIDING SCALE 100 UNITS/ML VIAL SUBQ PRN ×5 (01:20→23:46)
--- NOTE | 2022-02-20 03:56 | NUR ---
Spoke with provider about pt being upset and wanting to eat. Ok to feed pt.
[2022-02-20 07:32] LABS: BASOPHILS # (AUTO) 0.1 K/uL (0.00-0.22); BASOPHILS % (AUTO) 0.9 % (0.0-2.0); EOSINOPHILS % (AUTO) 0.2 % (0.0-4.0); LYMPHOCYTES # (AUTO) 2.2 K/uL (2.0-11.5); LYMPHOCYTES % (AUTO) 21.8 % (20.5-51.1); MEAN CORPUSCULAR HEMOGLOBIN 19 pg (27-31); MEAN CORPUSCULAR HGB CONC 29 g/dL (33-37); MEAN CORPUSCULAR VOLUME 64.4 fL (80-94); MONOCYTES # (AUTO) 0.7 K/uL (0.8-1.0); MONOCYTES % (AUTO) 7.3 % (1.7-9.3); NEUTROPHILS # (AUTO) 7.1 K/uL (1.8-7.7); NEUTROPHILS % (AUTO) 69.8 % (42.2-75.2); PLATELET COUNT (AUTO) 217 K/uL (140-450); RED BLOOD CELL COUNT(AUTO) 2.71 MIL/uL (4.20-6.10); RED CELL DISTRIBUTION WIDTH 19.7 % (11.6-13.7); WHITE BLOOD COUNT (AUTO) 10.2 K/uL (4.8-10.8)
[2022-02-20 07:43] LABS: HEMATOCRIT 17.4 % (36-52)
[2022-02-20 08:10] LABS: ANION GAP 18.5 (8-16); CARBON DIOXIDE 17.9 mmol/L (21-32); CREATININE 0.9 mg/dL (0.6-1.3); POTASSIUM 4.4 mmol/L (3.5-5.1)
--- NOTE | 2022-02-20 08:24 | NUR ---
halina sullivan notified about lowering hemoglobin, if pt is no longer having emesis with blood, okay with cc diet.
[2022-02-20] MEDS ORDERED: INSULIN LISPRO 100 UNITS/ML VIAL SUBQ SCH (08:30)
[2022-02-20] MEDS ORDERED: PIPERACILLIN/TAZOBACTAM 3.375 GM VIAL IV ONE (08:33)
[2022-02-20] MEDS: BLOOD GLUCOSE MONITORING 1 DEV DEV FS SCH ×5 (08:40→23:43)
[2022-02-20] MEDS: PIPERACILLIN/TAZOBACTAM 3.375 GM in DEXTROSE 5% 50 ML IV SCH ×2 (08:52→13:48)
--- NOTE | 2022-02-20 08:55 | NUR ---
glucose finger stick 382, sliding scale protocol used. pt was given breakfast tray cc diet at this time.
--- NOTE | 2022-02-20 12:00 | NUR ---
Patient will be admitted to care of Marlon CORNELL. Admitted to Telemetry. Will go to room 112B. Belongings list completed. Report to Ileana FELIZ.
--- NOTE | 2022-02-20 12:04 | NUR ---
Pt report given to Ileana FELIZ. Transfer of care at this time. Pt was taken to surgery via gurney by OR
[2022-02-20] MEDS ORDERED: MIDAZOLAM 5 MG/5 ML VIAL ONE (12:08)
[2022-02-20] MEDS ORDERED: diphenhydrAMINE 50 MG/ML VIAL ONE (12:08)
[2022-02-20] MEDS ORDERED: fentaNYL citrate 0.05 MG/ML VIAL ONE (12:08)
--- NOTE | 2022-02-20 12:29 | NUR ---
PT ARRIVED TO UNIT VIA GURNEY AND WAS TRANSFERRED TO BED. OR NURSES AT BEDSIDE TOOK PATIENT TO THE OR FOR EGD WITH DR. OGDEN. PT IS ANSWERING QUESTIONS APPROPRIATELY. AWARE OF PROCEDURE HE ALREADY SPOKE WITH DR. OGDEN AND SIGNED CONSENTS IN ER. PT IS A&OX4. ON RA WITH BREATHING UNLABORED. CONTINENT OF THE BOWEL AND BLADDER. PT HAS A LEFT AKA. PT STABLE. BELONGINGS INCLUDING CELL PHONE, WHEELCHAIR, AND CLOTHES AT BEDSIDE. Addendum: 02/20/22 at 1247 by Lauren Navarro RN NOTE WAS FOR 12:10 NOT 12:45.
[2022-02-20] MEDS: NACL 0.9% 1,000 ML IV SCH ×2 (12:35→13:00)
[2022-02-20] MEDS: OCTREOTIDE ACETATE 1.25 MG in NACL 0.9% 250 ML IV SCH ×2 (12:35→13:13)
[2022-02-20 12:45] VITALS: BP 126/72
--- NOTE | 2022-02-20 12:45 | NUR ---
PT BACK FROM OR AND STABLE. VS ARE STABLE. BREATHING UNLABORED. Addendum: 02/20/22 at 1341 by Lauren Navarro RN PT IS ST ON TELE MONITOR, HR 135.
[2022-02-20] MEDS ORDERED: fentaNYL citrate 0.05 MG/ML VIAL IVP ONE (13:00)
[2022-02-20] MEDS ORDERED: diphenhydrAMINE 50 MG/ML VIAL IVP ONE (13:00)
[2022-02-20] MEDS ORDERED: MIDAZOLAM 2 MG/2 ML VIAL IVP ONE (13:00)
--- NOTE | 2022-02-20 13:00 | NUR ---
PT IS IN BED. BACK FROM OR. SLEEPING IN SEMI FOWLERS POSITION. PT AROUSES TO STIMULATION BUT NOT WHEN CALLED BY NAME. OPENS EYES BRIEFLY. BP IS STABLE. O2 SAT IS 100% ON 2L O2 NC. PT IS STABLE. BREATHING IS UNLABORED. SKIN IS WARM AND DRY. NO SIGNS OF BLEEDING. WILL CONTINUE TO MONITOR.
[2022-02-20] MEDS: PROPRANOLOL 20 MG TAB PO SCH ×2 (13:12→16:34)
[2022-02-20] MEDS: LACTULOSE 20 GM/30 ML UDC PO SCH ×3 (13:13→21:56)
[2022-02-20] MEDS: METOCLOPRAMIDE 10 MG/2 ML INJ VIAL IVP SCH ×2 (13:13→21:56)
--- NOTE | 2022-02-20 13:37 | NUR ---
RECEIVED CALL FROM BLOOD BANK GIULIANO. HE STATED THAT HE RECEIVED CALL FROM BLOOD BANK AND HE HAS COMPLICATED CROSS MATCHED BLOOD WITH LOTS OF ANTIBODIES. THEY WILL GET UPDATE IN 40 MIN IF THEY RECEIVED CROSSED MATCHED BLOOD. THEY SAID THE ALTERNATIVE IS THAT THE PATIENT CAN RECEIVE UNCROSSED MATCHED BLOOD AT ANYTIME BUT IT HAS TO BE APPROVED BY DR. MARROQUIN AND HE WOULD HAVE TO SIGN AN EMERGENCY CONSENT. WILL NOTIFY DR MARROQUIN.
--- NOTE | 2022-02-20 13:48 | NUR ---
MESSAGED DR. MARROQUIN AND INFORMED HIM OF THE SITUATION WITH THE [facility] AND BLOOD CROSS MATCHING. ASKED IF HE WOULD LIKE TO WAIT FOR RESPONSE FROM [facility] IF THEY CAN MATCH THE BLOOD IN 40 MINUTES OR IF HE WANTS TO GIVE UNCROSSED MATCHED BLOOD STAT WITH HIS APPROVAL. INFORMED HIM WE WOULD NEED CONSENT FOR EITHER OPTION. WILL WAIT FOR RESPONSE.
--- NOTE | 2022-02-20 14:35 | NUR ---
RECEIVED CALL BACK FROM DR. MARROQUIN. HE STATED IF THEY ARE UNABLE TO CROSS MATCH THE BLOOD THEN HE GIVES CONSENT TO GIVE THE EMERGENCY UNCROSSED MATCHED BLOOD.
--- NOTE | 2022-02-20 14:36 | NUR ---
RECEIVED CALL FROM BLOOD BANK. THE BLOOD WAS CROSS MATCHED AND THEY ARE SENDING IT OVER TO THE HOSPITAL, PER HEMATOLOGY ONCOLOGY CONSULTANT IT CAN TAKE ANYWHERE UP TO TWO HOURS. WILL WAIT FOR BLOOD TO ARRIVE. HEMATOLOGY ONCOLOGY CONSULTANT ROBERTO STATED SHE WILL CALL WHEN IT IS READY. WILL WAIT FOR BLOOD TO ARRIVE.
--- NOTE | 2022-02-20 15:08 | NUR ---
CONSENT FAXED TO DR. MARROQUIN FOR BLOOD TRANSFUSION. WILL WAIT FOR IT TO BE RETURNED AND SENT BACK.
--- NOTE | 2022-02-20 15:38 | NUR ---
ROUNDED ON PT. HE HAD A BM AND VOIDED IN OWN CLOTHING HE WAS WEARING WITH GOWN. BM WAS BROWN IN COLOR AND URINE WAS YELLOW AND CLEAR. URINE WAS MODERATE IN AMOUNT. PT WAS SWEATING ON THE FOREHEAD. ASSISTED PT TO LAY DOWN ON THE BED. HE APPEARS DROWSY. CHECKED VITAL SIGNS. BP IS 94/38, HR 125, O2 SAT IS 98% ON 2L O2 NC. WILL INFORM DR. MARROQUIN.
--- NOTE | 2022-02-20 15:39 | NUR ---
CHARGE NURSE EAMON HARDING DIRECTOR RN, AND PRESIDENT AND CHIEF OPERATING OFFICER CK AT BEDSIDE ASSESSING PT. NOTIFIED OF CONDITION.
--- NOTE | 2022-02-20 15:40 | NUR ---
CALLED DR. MARROQUIN INFORMED HIM ABOUT THE DECREASE IN VITAL SIGNS, INCONTINENCE, SWEATING, AND CONDITION OF PT. HE STATED TO GIVE THE PATIENT A BOLUS OF 1,000 ML STAT AND TRANSFER TO THE ICU.
--- NOTE | 2022-02-20 15:44 | NUR ---
CHANGED AND CLEANED PT WITH VETERINARY MEDICINE DOCTOR. GOWN WAS CHANGED AND LINENS WERE CHANGED. PT APPEARS CALM. ANSWERS QUESTIONS BUT IS DROWSY. WILL CONTINUE TO MONITOR. NS 1,000 ML BOLUS IS INFUSING. WILL MONITOR VS.
--- NOTE | 2022-02-20 15:49 | NUR ---
PATIENT HAS BEEN SCREENED AND CATEGORIZED HIGH NUTRITION RISK. PATIENT WILL BE SEEN WITHIN 1-2 DAYS OF ADMISSION. R[address]
--- NOTE | 2022-02-20 15:50 | NUR ---
NOTIFIED CK, CEMENTER MACHINE JOINER, THAT THE PT WILL BE TRANSFERRED TO ICU. INFORMED HIM OF THE PT'S CONDITION AND VS. HE STATED HE WILL CALL BACK WHEN HE HAS A BED.
--- NOTE | 2022-02-20 15:51 | NUR ---
CALLED ROBERTO FROM BLOOD BANK AND SHE STATED THAT SHE JUST CALLED AND [facility] IS ON THE WAY WITH THE BLOOD. SHOULD BE ARRIVING SHORTLY. ASKED HER IF THEY DIDN'T COME SOON IF THE EMERGENCY UNCROSSED MATCHED BLOOD WOULD BE READY AND SHE STATED THAT THE OTHER SUPPLY PLANNER PROVIDED WRONG INFORMATION AND THAT THIS PATIENT CANNOT HAVE UNCROSSED UNMATCHED BLOOD DUE TO THE ANTIBODIES. SHE STATED SHE WILL CALL BACK WHEN THE BLOOD HAS ARRIVED.
[2022-02-20 16:00] VITALS: BP 109/56
--- NOTE | 2022-02-20 16:01 | NUR ---
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 [employer]AF[employer] WAS CALLED TO COUNT AND COLLECT FOR SAFEKEEPING.
--- NOTE | 2022-02-20 16:27 | NUR ---
PER CHARGE NURSE MEAGHAN AND DIRECTOR EAMON TERAN WILL BE TRANSFERRED TO ICU AT CHANGE OF SHIFT 1900. ROBERTO CALLED AND STATED THAT THE BLOOD WAS DELIVERED, SHE IS PROCESSING THE PAPERWORK STAT AND IT WILL BE READY.
--- NOTE | 2022-02-20 17:30 | NUR ---
BLOOD TRANSFUSION CONSENT SIGNED BY DR. MARROQUIN AND PT AT BEDSIDE. WILL BEGIN BLOOD TRANSFUSION SHORTLY.
--- NOTE | 2022-02-20 17:45 | NUR ---
BLOOD TRANSFUSION STARTED. PT IS ANSWERING QUESTIONS APPROPRIATELY. BREATHING UNLABORED ON 2L O2 NC. BP IS STABLE. HR IS ELEVATED. WILL CONTINUE TO MONITOR.
--- NOTE | 2022-02-20 19:48 | NUR ---
ENDORSED TO INFORMATION DELIVERY ANALYST NURSE FOR CONTINUITY OF CARE. PT CONDITION HAS IMPROVED. BP IS 122/67 AND HR 111. O2 SAT IS 100% ON 2L O2 NC. NO DISTRESS NOTED. PT IS RESTING COMFORTABLY. SANDOSTATIN DRIP ALSO INFUSING. BLOOD TRANSFUSION STILL INFUSING. PT IS STABLE. PLAN OF CARE DISCUSSED.
[2022-02-20 20:00] VITALS: BP 108/56
--- NOTE | 2022-02-20 20:00 | NUR ---
PATIENT IS LYING ON BED, VITAL SIGN IS WITHIN THE NORMAL RANGE, PATIENT IS RECEIVING BLOOD TRANSFUSION AT THIS TIME, NO ANY REACTION NOTED AT THIS TIME,NO ANY COMPLAIN OF PAIN OR SHORTNESS OF BREATH AT THIS TIME, CALL LIGHT IS WITHIN THE REACH, WILL CONTINUE TO MONITOR PATIENT
--- NOTE | 2022-02-20 20:05 | NUR ---
GET THE REPORT FROM MORNING NURSE, PATIENT IS LYING ON BED, PATIENT IA ALERT ORIENTED X 4 , CALL LIGHT IS WITHIN THE REACH, WILL CONTINUE TO MONITOR PATIENT.
--- NOTE | 2022-02-20 21:30 | NUR ---
FINISH BLOOD TRANSFUSION AT THIS TIME, FINISH VITAL SIGN IS WITHIN THE NORMAL RANGE, NO ANY COMPLAIN OF PAIN OR SHORTNESS OF BREATH AT THIS TIME, CALL LIGHT IS WITHIN THE REACH,WILL CONTINUE TO MONITOR PATIENT.
[2022-02-20] MEDS: SODIUM FERRIC GLUCONATE 125 MG in NACL 0.9% 100 ML IV SCH (21:55)
[2022-02-20] MEDS ORDERED: cefTRIAXone 1,000 MG VIAL ONE (22:37)
--- NOTE | 2022-02-20 23:51 | NUR ---
PATIENT BLOOD SUGAR IS 323, 8 UNIT INSULIN IS GIVEN PER DOCTOR ORDER , CALL LIGHT IS WITHIN THE REACH, WILL CONTINUE TO MONITOR PATIENT.
[2022-02-21] VITALS: BP 130/81
--- NOTE | 2022-02-21 00:09 | NUR ---
PATIENT IS LYING ON BED, VITAL SIGN IS WITHIN THE NORMAL RANGE, CALL LIGHT IS WITHIN THE REACH, WILL CONTINUE TO MONITOR PATIENT.
[2022-02-21] MEDS: NACL 0.9% 1,000 ML IV SCH ×2 (01:05→12:23)
[2022-02-21] MEDS: OCTREOTIDE ACETATE 1.25 MG in NACL 0.9% 250 ML IV SCH ×2 (02:15→14:51)
[2022-02-21 04:00] VITALS: BP 125/71
--- NOTE | 2022-02-21 04:26 | NUR ---
PATIENT IS LYING ON BED, VITAL SIGN IS WITHIN THE NORMAL RANGE , NO ANY COMPLAIN OF PAIN OR SHORTNESS OF BREATH AT THIS TIME,CALL LIGHT IS WITHIN THE REACH, WILL CONTINUE TO MONITOR PATIENT.
[2022-02-21] MEDS: metroNIDAZOLE 500 MG/NS PREMIX 100 ML IV SCH ×3 (04:45→20:47)
[2022-02-21] MEDS: METOCLOPRAMIDE 10 MG/2 ML INJ VIAL IVP SCH ×3 (04:45→20:47)
--- NOTE | 2022-02-21 04:56 | NUR ---
ALL SCHEDULE MEDICATION IS GIVEN PER DOCTOR ORDER, CALL LIGHT IS WITHIN THE REACH, WILL CONTINUE TO MONITOR PATIENT.
[2022-02-21] MEDS: INSULIN LISPRO SLIDING SCALE 100 UNITS/ML VIAL SUBQ PRN ×3 (05:40→17:39)
[2022-02-21] MEDS: BLOOD GLUCOSE MONITORING 1 DEV DEV FS SCH ×3 (05:41→17:38)
--- NOTE | 2022-02-21 05:49 | NUR ---
PATIENT MORNING BLOOD SUGAR IS 288, 6 UNIT INSULIN IS GIVEN PER DOCTOR ORDER, CALL LIGHT IS WITHIN THE REACH,WILL CONTINUE TO MONITOR PATIENT.
--- NOTE | 2022-02-21 07:00 | NUR ---
GAVE REPORT TO MORNING NURSE SANDRA FOR CONTINUOS OF CARE, PATIENT IS STABLE.
[2022-02-21 07:28] LABS: BASOPHILS # (AUTO) 0.1 K/uL (0.00-0.22); BASOPHILS % (AUTO) 0.9 % (0.0-2.0); EOSINOPHILS # (AUTO) 0.1 K/uL (0-0.4); EOSINOPHILS % (AUTO) 1.1 % (0.0-4.0); LYMPHOCYTES # (AUTO) 3.3 K/uL (2.0-11.5); LYMPHOCYTES % (AUTO) 35.1 % (20.5-51.1); MEAN CORPUSCULAR HEMOGLOBIN 21 pg (27-31); MEAN CORPUSCULAR HGB CONC 30 g/dL (33-37); MEAN CORPUSCULAR VOLUME 68.8 fL (80-94); MONOCYTES # (AUTO) 0.8 K/uL (0.8-1.0); MONOCYTES % (AUTO) 8.7 % (1.7-9.3); NEUTROPHILS % (AUTO) 54.2 % (42.2-75.2); PLATELET COUNT (AUTO) 185 K/uL (140-450); RED BLOOD CELL COUNT(AUTO) 2.84 MIL/uL (4.20-6.10); RED CELL DISTRIBUTION WIDTH 25.2 % (11.6-13.7); WHITE BLOOD COUNT (AUTO) 9.3 K/uL (4.8-10.8)
[2022-02-21 07:41] LABS: HEMATOCRIT 19.5 % (36-52); HEMOGLOBIN 5.9 g/dL (12.0-18.0)
[2022-02-21 07:49] LABS: ALBUMIN 2.5 g/dL (3.4-5.0); CARBON DIOXIDE 24.5 mmol/L (21-32); CREATININE 0.8 mg/dL (0.6-1.3); POTASSIUM 3.5 mmol/L (3.5-5.1); TOTAL BILIRUBIN 1.1 mg/dL (0.0-1.0)
[2022-02-21 08:00] VITALS: BP 121/73
--- NOTE | 2022-02-21 08:21 | NUR ---
REPORT GIVEN FROM NIGHTSHIFT RN. PT A/O X4. ABLE TO MAKE NEEDS KNOWN. NO SOB OR RESPIRATORY DISTRESS. ON 2L NC. DENIES PAIN. NS @ 80 ML/HR. IV SITES C/D/I. URINAL AT BEDSIDE. ALL NEEDS MET AT THIS TIME. SAFETY MEASURES IN PLACE. WILL CONTINUE TO MONITOR CLOSELY.
[2022-02-21] MEDS: LACTULOSE 20 GM/30 ML UDC PO SCH ×5 (08:43→16:10)
[2022-02-21] MEDS: PROPRANOLOL 20 MG TAB PO SCH ×3 (08:43→16:10)
[2022-02-21] MEDS: SODIUM FERRIC GLUCONATE 125 MG in NACL 0.9% 100 ML IV SCH ×2 (09:00→21:30)
--- NOTE | 2022-02-21 10:59 | NUR ---
CONTACTED MD REGARDING HGB LEVEL.
--- NOTE | 2022-02-21 11:00 | NUR ---
MD ORDER FOR 2 UNIT PRBC.
--- NOTE | 2022-02-21 11:57 | NUR ---
02/21/22 RD INITIAL ASSESSMENT COMPLETED PLEASE REFER TO NUTRITION ASSESSMENT UNDER CARE ACTIVITY FOR ESTIMATED NUTRITIONAL NEEDS. 1. CONTINUE CLEAR LIQUID DIET TOLERATED 2. RECOMMEND ENSURE CLEAR TID PER RD PROTOCOL 3. WHEN/IF MEDICALLY APPROPRIATE, RECOMMEND ADVANCING TO [facility] 60GM, SOFT DIET 4. RD TO FOLLOW-UP 3-5 DAYS, MODERATE RISK ROHINI EZE RD
[2022-02-21 12:00] VITALS: BP 115/72
--- NOTE | 2022-02-21 12:16 | NUR ---
CONTACTED BLOOD BANK REGARDING PRBC VIA MD ORDER. WILL CALL BACK ONCE PRBC IS READY.
--- NOTE | 2022-02-21 12:21 | NUR ---
DC PLANNING: THE PATIENT ADMITTED WITH C/O WORSENING ABDOMINAL PAIN X 1 WEEK. H/O CIRRHOSIS, DM AND SARCOMA. PRIOR ADMISSION TO [facility] [address] ABDOMEN/PELVIS SHOWS PORTAL HTN AND COLITIS, HGB INITIALLY 6.4, DECREASED TO 5, 1 UNIT PRBC'S ORDERED, PER [place] PATIENT HAS ANTIBODIES ON T&C. GI CONSULT, EGD DONE WITH FINDINGS OF SEVERE ESOPHAGEAL VARICES GRADE 4, VARICES LIGATED AND BANDED. PATIENT STARTED ON SANDOSTATIN IV, ALSO ON FLAGYL, ROCEPHIN AND IV FE, LACTULOSE AND IVF'S. GI MD NOTES THAT PATIENT MIGHT BE A GOOD CANDIDATE FOR TIPS PROCEDURE. CM ATTEMPTED TO SPEAK WITH THE PATIENT AT BEDSIDE, HE WAS SLEEPING AND UNABLE TO BE ROUSED. VM LEFT FOR HIS JANICE ASKING FOR A CALL BACK. CM WILL FOLLOW.
--- NOTE | 2022-02-21 15:30 | NUR ---
RECEIVED PHONECALL FROM LAB AND STATES 1 UNIT PRBC IS READY FOR PICKUP
--- NOTE | 2022-02-21 15:45 | NUR ---
1 UNIT PRBC STARTED. VSS.
[2022-02-21 16:00] VITALS: BP 110/67
--- NOTE | 2022-02-21 16:00 | NUR ---
VSS. PT STATES NO REACTION TO BLOOD TRANSFUSION. NO FEVER, CHILL, PAIN OR ITCHING. SAFETY MEASURES IN PLACE. WILL CONTINUE TO MONITOR CLOSELY.
--- NOTE | 2022-02-21 19:30 | NUR ---
REPORT GIVEN TO NIGHTSHIFT RNBETTY FOR CONTINUITY OF CARE.
[2022-02-21 20:00] VITALS: BP 101/64
--- NOTE | 2022-02-21 20:05 | NUR ---
RECEIVED REPORT OF PT IN STABLE CONDITION.RESP UNLABORED W/O2/NC.IVF INFUSING WELL.SANDOSTATIN AT 20ML/H IS IN PROGRESS. HR IS SR-ST.CALL LIGHT IN REACH.NO DISTRESS NOTED NOW.WILL CONT.MONITORING.
[2022-02-21] MEDS: FERROUS SULFATE 300 MG/5 ML UDC GT SCH (20:46)
[2022-02-22] MEDS: BLOOD GLUCOSE MONITORING 1 DEV DEV FS SCH ×4 (00:16→17:08)
[2022-02-22] MEDS: INSULIN LISPRO SLIDING SCALE 100 UNITS/ML VIAL SUBQ PRN ×4 (00:33→17:09)
[2022-02-22 01:00] VITALS: BP 110/68
--- NOTE | 2022-02-22 01:30 | NUR ---
CONDITION STABLE.2ND UNIT OF PRBC STARTED AND INFUSING WELL.WILL CONTINUE MONITORING DURING TRANSFUSION.
[2022-02-22] MEDS: OCTREOTIDE ACETATE 1.25 MG in NACL 0.9% 250 ML IV SCH ×2 (03:45→16:20)
[2022-02-22 04:00] VITALS: BP 124/84
[2022-02-22] MEDS: metroNIDAZOLE 500 MG/NS PREMIX 100 ML IV SCH ×3 (04:53→21:17)
[2022-02-22] MEDS: METOCLOPRAMIDE 10 MG/2 ML INJ VIAL IVP SCH ×3 (04:53→21:18)
--- NOTE | 2022-02-22 05:08 | NUR ---
2nd unit of prbc finished.pt tolerated blood well.vs stable during transfusion.
--- NOTE | 2022-02-22 06:48 | NUR ---
XA=137 COVERED PER SLIDING SCALE.ADVANCED DIET TO SOFT DIET.NO S/S OF ANY DISTRESS NOTED AT PRESENT TIME.
--- NOTE | 2022-02-22 07:08 | NUR ---
COAT ROOM ATTENDANT/ONCOLOGIST VISITED PT LAST NIGHT .HE RECOMMENDED ONLY TRANSFUSION FOR PT.
--- NOTE | 2022-02-22 07:19 | NUR ---
ENDORSED TO AM RN IN STABLE CONDITION.
--- NOTE | 2022-02-22 07:21 | NUR ---
CALLED LAB AND TOLD THEM TO DRAW PT'S BLOOD AT 07 AM
[2022-02-22 08:00] VITALS: BP 99/70
--- NOTE | 2022-02-22 08:06 | NUR ---
REPORT GIVEN FROM NIGHTSHIFT RN. PT A/O X4. ABLE TO MAKE NEEDS KNOWN. NO SOB OR RESPIRATORY DISTRESS. ON 2L NC. DENIES PAIN. NS AND OCTREOTIDE INFUSING ON L HAND AND R HAND IV SITES C/D/I. LLE AMPUTATION NOTED. URINAL AT BEDSIDE. PT'S PERSONAL WHEELCHAIR AT BEDSIDE. LABS DRAWN AT BEDSIDE. WILL FOLLOW UP WITH RESULTS. ALL NEEDS MET AT THIS TIME. SAFETY MEASURES IN PLACE. WILL CONTINUE TO MONITOR CLOSELY.
[2022-02-22 08:25] LABS: ANION GAP 8.7 (8-16); CARBON DIOXIDE 26.4 mmol/L (21-32); CREATININE 0.7 mg/dL (0.6-1.3); POTASSIUM 3.1 mmol/L (3.5-5.1)
[2022-02-22] MEDS: metFORMIN 500 MG TAB PO SCH ×2 (08:54→16:19)
[2022-02-22] MEDS: LACTULOSE 20 GM/30 ML UDC PO SCH ×3 (08:56→16:19)
[2022-02-22] MEDS: PROPRANOLOL 20 MG TAB PO SCH ×3 (08:56→16:19)
[2022-02-22] MEDS: FERROUS SULFATE 300 MG/5 ML UDC GT SCH ×2 (08:56→21:15)
[2022-02-22] MEDS: PIOGLITAZONE 30 MG TAB PO SCH (08:56)
[2022-02-22] MEDS: SODIUM FERRIC GLUCONATE 125 MG in NACL 0.9% 100 ML IV SCH ×2 (09:54→21:17)
--- NOTE | 2022-02-22 11:20 | NUR ---
BLOOD GLUCOSE VIA FINGERSTICK = 403. 10 UNITS HUMALOG GIVEN AND MD AND PROCESS IMPROVEMENT CONSULTANT CONTACTED. AWAITING RESPONSE.
--- NOTE | 2022-02-22 11:50 | NUR ---
BLOOD GLUCOSE CHECK VIA FINGERSTICK = 363.
[2022-02-22 12:00] VITALS: BP 121/73
[2022-02-22 12:28] LABS: BASOPHILS # (AUTO) 0.1 K/uL (0.00-0.22); BASOPHILS % (AUTO) 0.9 % (0.0-2.0); EOSINOPHILS # (AUTO) 0.2 K/uL (0-0.4); EOSINOPHILS % (AUTO) 2.5 % (0.0-4.0); HEMATOCRIT 24.3 % (36-52); HEMOGLOBIN 7.5 g/dL (12.0-18.0); LYMPHOCYTES # (AUTO) 2.4 K/uL (2.0-11.5); LYMPHOCYTES % (AUTO) 31.1 % (20.5-51.1); MEAN CORPUSCULAR HEMOGLOBIN 23 pg (27-31); MEAN CORPUSCULAR HGB CONC 31 g/dL (33-37); MEAN CORPUSCULAR VOLUME 73.8 fL (80-94); MONOCYTES # (AUTO) 0.7 K/uL (0.8-1.0); MONOCYTES % (AUTO) 8.3 % (1.7-9.3); NEUTROPHILS # (AUTO) 4.5 K/uL (1.8-7.7); NEUTROPHILS % (AUTO) 57.2 % (42.2-75.2); PLATELET COUNT (AUTO) 135 K/uL (140-450); RED CELL DISTRIBUTION WIDTH 27.5 % (11.6-13.7); WHITE BLOOD COUNT (AUTO) 7.9 K/uL (4.8-10.8)
[2022-02-22] MEDS: NACL 0.9% 1,000 ML IV SCH (12:48)
--- NOTE | 2022-02-22 13:00 | NUR ---
CONTACTED MD REGARDING POTASSIUM LEVEL. AWAITING RESPONSE
[2022-02-22] MEDS ORDERED: POTASSIUM CHLORIDE 10 MEQ TABER PO SCH (15:45)
[2022-02-22 16:00] VITALS: BP 111/68
--- NOTE | 2022-02-22 16:20 | NUR ---
KDUR 40 MEQ TIMES ONE DOSE GIVEN TO PT ALONG WITH SCHEDULED MEDS. VSS. PROVIDED ORAL FLUIDS REQUESTED. POC UPDATED WITH PT.
--- NOTE | 2022-02-22 19:26 | NUR ---
REPORT GIVEN TO NIGHTSHIFT RN FOR CONTINUITY OF CARE.
[2022-02-22 20:00] VITALS: BP 112/65
[2022-02-23] VITALS: BP 115/68
[2022-02-23] MEDS: BLOOD GLUCOSE MONITORING 1 DEV DEV FS SCH ×4 (00:55→17:56)
[2022-02-23] MEDS: INSULIN LISPRO SLIDING SCALE 100 UNITS/ML VIAL SUBQ PRN ×3 (01:05→17:58)
[2022-02-23 04:00] VITALS: BP 115/70
[2022-02-23] MEDS: metroNIDAZOLE 500 MG/NS PREMIX 100 ML IV SCH ×3 (04:45→21:45)
[2022-02-23] MEDS: OCTREOTIDE ACETATE 1.25 MG in NACL 0.9% 250 ML IV SCH ×2 (04:46→17:46)
[2022-02-23] MEDS: METOCLOPRAMIDE 10 MG/2 ML INJ VIAL IVP SCH ×3 (04:46→21:46)
[2022-02-23 07:08] LABS: BASOPHILS # (AUTO) 0.1 K/uL (0.00-0.22); BASOPHILS % (AUTO) 0.7 % (0.0-2.0); EOSINOPHILS # (AUTO) 0.2 K/uL (0-0.4); HEMATOCRIT 26.8 % (36-52); HEMOGLOBIN 8.3 g/dL (12.0-18.0); LYMPHOCYTES # (AUTO) 2.5 K/uL (2.0-11.5); LYMPHOCYTES % (AUTO) 32.1 % (20.5-51.1); MEAN CORPUSCULAR HEMOGLOBIN 24 pg (27-31); MEAN CORPUSCULAR HGB CONC 31 g/dL (33-37); MEAN CORPUSCULAR VOLUME 76.6 fL (80-94); MONOCYTES # (AUTO) 0.6 K/uL (0.8-1.0); MONOCYTES % (AUTO) 7.9 % (1.7-9.3); NEUTROPHILS # (AUTO) 4.3 K/uL (1.8-7.7); NEUTROPHILS % (AUTO) 56.3 % (42.2-75.2); PLATELET COUNT (AUTO) 132 K/uL (140-450); RED BLOOD CELL COUNT(AUTO) 3.49 MIL/uL (4.20-6.10); RED CELL DISTRIBUTION WIDTH 27.7 % (11.6-13.7); WHITE BLOOD COUNT (AUTO) 7.6 K/uL (4.8-10.8)
[2022-02-23 07:27] LABS: ANION GAP 10.1 (8-16); CARBON DIOXIDE 25.2 mmol/L (21-32); CREATININE 0.6 mg/dL (0.6-1.3); POTASSIUM 3.3 mmol/L (3.5-5.1)
[2022-02-23 08:00] VITALS: BP 120/75
[2022-02-23] MEDS: metFORMIN 500 MG TAB PO SCH ×2 (08:00→17:10)
--- NOTE | 2022-02-23 08:05 | NUR ---
RECEIVE ENDORSEMENT FROM PM SHIFT NURSE THAT PATIENT REST IN BED, PIV AT BOTH L. & R. HAND INFUSING AT 20 ML/HR. WILL CONTINUE TO MONITOR PATIENT.
[2022-02-23] MEDS ORDERED: POTASSIUM CHLORIDE 10 MEQ TABER PO SCH (08:25)
[2022-02-23] MEDS: FERROUS SULFATE 300 MG/5 ML UDC GT SCH ×2 (09:40→21:44)
[2022-02-23] MEDS: LACTULOSE 20 GM/30 ML UDC PO SCH ×3 (09:41→17:10)
[2022-02-23] MEDS: PROPRANOLOL 20 MG TAB PO SCH ×3 (09:42→17:10)
[2022-02-23] MEDS: PIOGLITAZONE 30 MG TAB PO SCH (09:42)
[2022-02-23] MEDS: SODIUM FERRIC GLUCONATE 125 MG in NACL 0.9% 100 ML IV SCH ×2 (09:43→21:45)
[2022-02-23 12:00] VITALS: BP 111/74
[2022-02-23] MEDS: NACL 0.9% 1,000 ML IV SCH (13:41)
--- NOTE | 2022-02-23 14:49 | NUR ---
RECEIVED PATIENT'S SIGNIFICANT OTHER/ (([phone]) WANTS UPDATE PATIENT'S STATUS. NURSE INFORM THAT PATIENT'S BLOOD SUGAR ABOVE 300. WANTS CONTACT PCP. DR. MARROQUIN INFORMED. WILL CONTINUE TO MONITOR
[2022-02-23 16:00] VITALS: BP 107/60
[2022-02-23] MEDS ORDERED: METO-485 PO (16:54)
[2022-02-23] MEDS ORDERED: ACT30 PO (16:54)
[2022-02-23] MEDS ORDERED: LACT10SO11 PO (16:54)
[2022-02-23] MEDS ORDERED: FERR325E14 PO (16:54)
[2022-02-23] MEDS ORDERED: GLUXL5 PO (16:54)
[2022-02-23] MEDS ORDERED: METF-346 PO (16:54)
[2022-02-23] MEDS ORDERED: PROP20TA29 PO (16:54)
[2022-02-23 18:34] VITALS: BP 107/60
--- NOTE | 2022-02-23 19:30 | NUR ---
ENDORSE PT TO PM SHIFT NURSE THAT PATIENT REST IN BED, PIV AT BOTH L. & R. HAND INFUSING AT 20 ML/HR, D/C PACKAGE READY, PATIENT CAN BE D/C HOME AFTER GET OFF FROM WORK AFTER 2200
--- NOTE | 2022-02-23 19:31 | NUR ---
RECEIVED BEDSIDE REPORT FROM DAY SHIFT NURSE FOR CONTINUITY OF PATIENT CARE.
--- NOTE | 2022-02-23 19:31 | NUR ---
RECEIVED BEDSIDE ENDORSEMENT FROM DAY SHIFT NURSE FOR CONTINUITY OF PATIENT CARE.
--- NOTE | 2022-02-23 21:00 | NUR ---
SPOKE TO PATIENT'S , JANICE, WILL ELECTION CLERK PATIENT AFTER WORK AT 22.30 FOR DISCHARGE. MADE AWARE TO IF PATIENT DISCHARGE AFTER MIDNIGHT, PATIENT WILL PAY OUT OF POCKET. VERBALIZED UNDERSTOOD.
--- NOTE | 2022-02-23 23:00 | NUR ---
CAME TO CABINET PROFESSIONAL PATIENT HOME. IV LINES ON RIGHT AND LEFT HANDS WERE DISCONNECTED, PRESSURE APPLIED WITH NO BLEEDING FROM THE SITES. NECESSARY DISCHARGE PAPERWORKS SIGNED BY PATIENT AND COPY RENDERED TO . PATIENT DISCHARGED VIA WHEELCHAIR, PATIENT'S OWN WHEELCHAIR. PATIENT'S BELONGINGS WITH .
[2022-02-24] MEDS ORDERED: glipiZIDE ER 5 MG TABER PO SCH (08:00)
== END 2022-02-23 23:00 | disposition home or self-care (01) | DRG 432 ==
LOC: MED 13:18 → MTU 17:57
PROVIDERS: ADMIT Preventive Medicine Preventive Medicine/Occupational Environmental Medicine; ATTEND Preventive Medicine Preventive Medicine/Occupational Environmental Medicine
PROC: 06L38CZ Occlusion of Esophageal Vein with Extraluminal Device, Via Natural or Artificial Opening Endoscopic (ICD-10-PCS; principal; 2022-02-20 12:00)
PROC: 30233N1 Transfusion of Nonautologous Red Blood Cells into Peripheral Vein, Percutaneous Approach (ICD-10-PCS; 2022-02-22)
DX: K74.60 Unspecified cirrhosis of liver (principal); E43 Unspecified severe protein-calorie malnutrition; I85.11 Secondary esophageal varices with bleeding; K76.6 Portal hypertension; E87.2 Acidosis; C40.22 Malignant neoplasm of long bones of left lower limb; K59.00 Constipation, unspecified; K52.9 Noninfective gastroenteritis and colitis, unspecified; I10 Essential (primary) hypertension; F15.90 Other stimulant use, unspecified, uncomplicated; E88.09 Other disorders of plasma-protein metabolism, not elsewhere classified; E11.65 Type 2 diabetes mellitus with hyperglycemia; D69.6 Thrombocytopenia, unspecified; E11.43 Type 2 diabetes mellitus with diabetic autonomic (poly)neuropathy; R74.01 Elevation of levels of liver transaminase levels; E83.52 Hypercalcemia; D50.0 Iron deficiency anemia secondary to blood loss (chronic); E83.51 Hypocalcemia; E87.6 Hypokalemia; K31.84 Gastroparesis; Z20.822 Contact with and (suspected) exposure to COVID-19; Z59.02 Unsheltered homelessness
CPT/HCPCS: 36415; 36430; 71045; 76700; 80048; 80053; 81003; 82105; 82550; 82948; 83036; 83605; 83880; 84484; 85025; 85610; 85651; 85730; 86140; 86870; 86886; 86900; 86901; 86920; 87040; 87081; 87086; 93005; 96365; 96375; 99291; C9113; J0696; J1200; J1815; J2250; J2270; J2354; J2405; J2543; J2765; J2916; J3010; J3490; J7030; J7060; P9016; Q0092; Q9967

== ENCOUNTER 2022-11-26 00:02 | Observation (INO) | payer OTHER, MEDICAID ==
[~2022-11-26] VITALS: Ht 193 cm; Wt 110.7 kg
[~2022-11-26 00:02] MED LIST changes: +ACT30 PO; +FERR325E14 PO; +GLUXL5 PO; +LACT10SO11 PO; -LEVO-315 PO; +LEVO750T75 PO; +METF-346 PO; +METO-485 PO; +PROP20TA29 PO
[2022-11-26 00:16] VITALS: BP 113/81
--- NOTE | 2022-11-26 00:22 | NUR ---
pt to bed
--- NOTE | 2022-11-26 00:32 | NUR ---
PT IS HERE BECAUSE OF VOMITTING BLOOD 3X TIMES BRIGHT RED. PT IS HOMELESS. HX MEDICAL DM, CIROCHIS OF LIVER, ANEMIC.
[2022-11-26] MEDS ORDERED: ONDANSETRON 4 MG/2 ML VIAL IVP ONE (00:45)
[2022-11-26] MEDS ORDERED: NACL 0.9% 1,000 ML IV ONE (00:45)
[2022-11-26 01:06] LABS: BASOPHILS # (AUTO) 0.1 K/uL (0.00-0.22); EOSINOPHILS # (AUTO) 0.2 K/uL (0-0.4); EOSINOPHILS % (AUTO) 2.9 % (0.0-4.0); HEMATOCRIT 29.9 % (36-52); HEMOGLOBIN 9.5 g/dL (12.0-18.0); LYMPHOCYTES # (AUTO) 1.4 K/uL (2.0-11.5); LYMPHOCYTES % (AUTO) 24.3 % (20.5-51.1); MEAN CORPUSCULAR HEMOGLOBIN 22 pg (27-31); MEAN CORPUSCULAR HGB CONC 32 g/dL (33-37); MEAN CORPUSCULAR VOLUME 67.3 fL (80-94); MONOCYTES # (AUTO) 0.6 K/uL (0.8-1.0); MONOCYTES % (AUTO) 10.5 % (1.7-9.3); NEUTROPHILS # (AUTO) 3.4 K/uL (1.8-7.7); NEUTROPHILS % (AUTO) 61.3 % (42.2-75.2); PLATELET COUNT (AUTO) 135 K/uL (140-450); RED BLOOD CELL COUNT(AUTO) 4.44 MIL/uL (4.20-6.10); RED CELL DISTRIBUTION WIDTH 17.4 % (11.6-13.7); WHITE BLOOD COUNT (AUTO) 5.6 K/uL (4.8-10.8)
[2022-11-26 01:14] LABS: ANION GAP 12.6 (8-16); CARBON DIOXIDE 24.5 mmol/L (21-32); POTASSIUM 3.1 mmol/L (3.5-5.1); TOTAL BILIRUBIN 0.7 mg/dL (0.0-1.0)
[2022-11-26] MEDS ORDERED: PANTOPRAZOLE 40 MG INJ VIAL IVP ONE (01:45)
[2022-11-26] MEDS ORDERED: MORPHINE SULFATE 4 MG/ML SYR IVP ONE (01:45)
--- NOTE | 2022-11-26 02:00 | NUR ---
pt is asking for water. item was provided.
[2022-11-26 02:03] LABS: APPEARANCE,URINE CLEAR (CLEAR); BILIRUBIN,URINE 1+ (NEGATIVE); BLOOD, URINE NEGATIVE (NEGATIVE); COLOR,URINE YELLOW (YELLOW); LEUKOCYTE ESTERASE ,URINE NEGATIVE (NEGATIVE); NITRITE, URINE NEGATIVE (NEGATIVE); PH,URINE 6.5 (5.0-9.0); UGLUCOSE 2+ (NEGATIVE)
--- NOTE | 2022-11-26 04:00 | NUR ---
pt is eating comfortably.
[2022-11-26] MEDS ORDERED: MAG SULF 2000 MG/WATER PREMIX 50 ML IV PRN (04:55)
[2022-11-26] MEDS ORDERED: ACETAMINOPHEN 325 MG TAB PO PRN (04:55)
[2022-11-26] MEDS ORDERED: ONDANSETRON 4 MG/2 ML VIAL IVP PRN (04:55)
[2022-11-26] MEDS ORDERED: MAGNESIUM OXIDE 400 MG TAB PO PRN (04:55)
[2022-11-26] MEDS ORDERED: NACL 0.9% 1,000 ML IV SCH (04:55)
[2022-11-26] MEDS ORDERED: KCL 20 MEQ IN 100 mL PREMIX 200 ML IV PRN (04:55)
[2022-11-26] MEDS ORDERED: MORPHINE SULFATE 4 MG/ML SYR IVP PRN (04:55)
[2022-11-26] MEDS ORDERED: POTASSIUM CHLORIDE 10 MEQ TABER PO PRN (04:55)
[2022-11-26] MEDS: HYDROcodone/APAP 5/325 MG 1 TAB TAB PO PRN ×2 (07:44→12:29)
--- NOTE | 2022-11-26 07:45 | NUR ---
ASSUMED PATIENT CARE, CONCUR WITH NURSING ASSESSMENT.
--- NOTE | 2022-11-26 08:05 | NUR ---
TRANSFERRED TO [facility] VIA ACLS PROTOCOL, PATIENT CARE GIVEN TO MST RN. CONTINUITY OF CARE ENDORSED. PATIENT UPDATED ACCORDINGLY OF PLAN OF CARE.
--- NOTE | 2022-11-26 08:10 | NUR ---
PT ARRIVED FROM ER VIA GURNEY. RECEIVED REPORT FROM ER NURSE. PT AAOX4. PT IS CALM BUT REPORTS PAIN IN LEFT LOWER ABDOMEN AREA, RATED 6/10, DOES NOT RADIATE AND REPORTS PAIN FEELING WORSE WHEN MOVING AROUND. VITALS OBTAINED (TEMP: 98.4, BP: 110/72, HR: 105, RR: 18, O2: 93%).
[2022-11-26] MEDS ORDERED: PANTOPRAZOLE 40 MG INJ VIAL IVP SCH (09:00)
--- NOTE | 2022-11-26 09:38 | NUR ---
PATIENT HAS BEEN SCREENED AND CATEGORIZED MODERATE NUTRITION RISK. PATIENT WILL BE SEEN WITHIN 3-5 DAYS OF ADMISSION. REVIEWED BY ROHINI ZEE RD
[2022-11-26] MEDS ORDERED: MORPHINE SULFATE 2 MG/ML SYR IVP PRN (10:35)
[2022-11-26 12:00] VITALS: BP 130/83
--- NOTE | 2022-11-26 12:34 | NUR ---
PT IS RESTING IN BED. NON PHARM INTERVENTIONS WERE PROVIDED FOR PAIN MANAGEMENT. PT REPORTS STILL HAVING PAIN IN RIGHT LOWER ABDOMEN AREA (RATE:6/10, PAIN DOES NOT RADIATE, PT REPORTS PAIN INCREASES SLIGHTLY WHEN MOVING). PRN PAIN MED ADMINISTERED, PT TOLERATED SUPERVISOR TYPESETTING WELL. WILL REASSESS PAIN IN 60 MIN. SAFETY PRECAUTIONS IN PLACE. BED IN LOWEST POSITION, CALL LIGHT PLACED WITHIN REACH.
[2022-11-26] MEDS ORDERED: PANT40EC PO (13:20)
[2022-11-26 14:09] VITALS: BP 130/83
--- NOTE | 2022-12-04 09:15 | NUR ---
LATE ENTRY -- NS INFUSION COMPLETED AT 1731 11/26/22
== END 2022-11-26 16:45 | disposition home or self-care (01) ==
LOC: MED 00:02 → MTU 04:57
PROVIDERS: ADMIT Hospitalist; ATTEND Hospitalist
DX: K92.0 Hematemesis (principal); Z20.822 Contact with and (suspected) exposure to COVID-19; K74.60 Unspecified cirrhosis of liver; I85.00 Esophageal varices without bleeding; I10 Essential (primary) hypertension; E11.65 Type 2 diabetes mellitus with hyperglycemia; E87.6 Hypokalemia; E87.1 Hypo-osmolality and hyponatremia; E83.51 Hypocalcemia; D63.8 Anemia in other chronic diseases classified elsewhere; Z85.828 Personal history of other malignant neoplasm of skin; Z79.899 Other long term (current) drug therapy
CPT/HCPCS: 36415; 71045; 80053; 81003; 82140; 82948; 83605; 83690; 85025; 86870; 86886; 86900; 86901; 87040; 87081; 87426; 87804; 93005; 96361; 96374; 96375; 96376; 99291; C9113; G0378; J2270; J2405; Q0092

== ENCOUNTER 2024-01-02 06:17 | Emergency (ER) | payer OTHER ==
[~2024-01-02] VITALS: Ht 195.6 cm; Wt 111.1 kg
[~2024-01-02 06:17] MED LIST changes: -ACT30 PO; +AZIT250T3 PO; -FERR325E14 PO; -GLUXL5 PO; -LACT10SO11 PO; -LEVO750T75 PO; -METF-346 PO; -METO-485 PO; -PROP20TA29 PO
[2024-01-02 06:21] VITALS: BP 127/84; PULSE 125; RESP 18; TEMP 98.9; O2SAT 97
[2024-01-02] MEDS: MORPHINE SULFATE 4 MG/ML SYR IVP ONE (07:14)
[2024-01-02] MEDS: ONDANSETRON 4 MG/2 ML VIAL IVP ONE (07:14)
[2024-01-02] MEDS: FAMOTIDINE 20 MG/2 ML VIAL IVP ONE (07:14)
[2024-01-02] MEDS: NACL 0.9% 1,000 ML IV ONE (07:15)
[2024-01-02 07:20] LABS: BASOPHILS % (AUTO) 0.6 % (0.0-2.0); EOSINOPHILS # (AUTO) 0.1 K/uL (0-0.4); LYMPHOCYTES # (AUTO) 0.8 K/uL (2.0-11.5); LYMPHOCYTES % (AUTO) 13.9 % (20.5-51.1); MONOCYTES # (AUTO) 0.6 K/uL (0.8-1.0); MONOCYTES % (AUTO) 9.4 % (1.7-9.3); NEUTROPHILS # (AUTO) 4.4 K/uL (1.8-7.7); WHITE BLOOD COUNT (AUTO) 5.9 K/uL (4.8-10.8)
[2024-01-02 07:29] LABS: EOSINOPHILS % (AUTO) 1.9 % (0.0-4.0); HEMATOCRIT 34.4 % (36-52); MEAN CORPUSCULAR HEMOGLOBIN 22 pg (27-31); MEAN CORPUSCULAR HGB CONC 32 g/dL (33-37); MEAN CORPUSCULAR VOLUME 67.4 fL (80-94); NEUTROPHILS % (AUTO) 74.2 % (42.2-75.2); PLATELET COUNT (AUTO) 124 K/uL (140-450); RED CELL DISTRIBUTION WIDTH 16.6 % (11.6-13.7)
[2024-01-02 07:36] LABS: INR 1.13 (0.8-1.2); PROTHROMBIN TIME 11.8 secs (10.8-13.4)
[2024-01-02 07:37] LABS: ANION GAP 14.2 (8-16); CALCIUM 8.2 mg/dL (8.5-10.1); CREATININE 0.8 mg/dL (0.6-1.3); POTASSIUM 3.2 mmol/L (3.5-5.1)
[2024-01-02 08:26] LABS: ALBUMIN 3.1 g/dL (3.4-5.0); BILIRUBIN,DIRECT 0.4 mg/dL (0.0-0.3); TOTAL BILIRUBIN 1.4 mg/dL (0.0-1.0); TOTAL PROTEIN, SERUM 7.9 g/dL (6.4-8.2)
[2024-01-02] MEDS: KCL 20 MEQ IN 100 mL PREMIX 100 ML IV ONE (09:54)
[2024-01-02] MEDS: MIDAZOLAM 2 MG/2 ML VIAL IVP ONE (10:09)
[2024-01-02 14:45] LABS: AMPHETAMINE, URINE POSITIVE ng/ml (NEG <=1000); CANNABINOID, URINE POSITIVE ng/mL (NEG <=50); OPIATE, URINE POSITIVE ng/mL (NEG <=2000)
[2024-01-02 14:46] LABS: BARBITURATE, URINE NEGATIVE ng/ml (NEG <=200); BENZODIAZEPINE, URINE NEGATIVE ng/mL (NEG <=200); COCAINE, URINE NEGATIVE ng/mL (NEG <=300); PHENCYCLIDINE SCREEN,URINE NEGATIVE ng/mL (NEG <=25)
[2024-01-02 15:39] VITALS: BP 131/80; PULSE 125; RESP 22; TEMP 98.1; O2SAT 99
== END 2024-01-02 15:29 | disposition short-term general hospital (02) ==
LOC: MED 06:17
DX: K56.690 Other partial intestinal obstruction (principal); K74.60 Unspecified cirrhosis of liver; I86.4 Gastric varices; Z79.899 Other long term (current) drug therapy
CPT/HCPCS: 36415; 74176; 80048; 80076; 80305; 82948; 83605; 83690; 85025; 85610; 86886; 86900; 86901; 96361; 96374; 96375; 99291; J2250; J2270; J2405; J3480; J3490; J7030

== ENCOUNTER 2024-05-24 19:25 | Inpatient (IN) | payer OTHER ==
[~2024-05-24] VITALS: Ht 177.8 cm; Wt 67.6 kg
[2024-05-24 19:31] VITALS: BP 104/80; PULSE 130; RESP 18; TEMP 98.3; O2SAT 98
[2024-05-24 19:45] VITALS: O2SAT 98
[2024-05-24] MEDS: NACL 0.9% 1,000 ML IV ONE (20:43)
[2024-05-24] MEDS: ONDANSETRON 4 MG/2 ML VIAL IVP ONE (20:48)
[2024-05-24 20:50] LABS: BASOPHILS % (AUTO) 0.3 % (0.0-2.0); EOSINOPHILS # (AUTO) 0.2 K/uL (0-0.4); EOSINOPHILS % (AUTO) 4.6 % (0.0-4.0); LYMPHOCYTES # (AUTO) 0.9 K/uL (2.0-11.5); LYMPHOCYTES % (AUTO) 24.2 % (20.5-51.1); MEAN CORPUSCULAR HEMOGLOBIN 21 pg (27-31); MEAN CORPUSCULAR HGB CONC 31 g/dL (33-37); MEAN CORPUSCULAR VOLUME 67.6 fL (80-94); MONOCYTES # (AUTO) 0.4 K/uL (0.8-1.0); MONOCYTES % (AUTO) 11.1 % (1.7-9.3); NEUTROPHILS # (AUTO) 2.3 K/uL (1.8-7.7); NEUTROPHILS % (AUTO) 59.8 % (42.2-75.2); PLATELET COUNT (AUTO) 103 K/uL (140-450); RED BLOOD CELL COUNT(AUTO) 3.25 MIL/uL (4.20-6.10); RED CELL DISTRIBUTION WIDTH 16.5 % (11.6-13.7); WHITE BLOOD COUNT (AUTO) 3.8 K/uL (4.8-10.8)
[2024-05-24 20:56] LABS: HEMOGLOBIN 6.7 g/dL (12.0-18.0)
[2024-05-24] MEDS: MORPHINE SULFATE 4 MG/ML SYR IVP ONE (20:57)
[2024-05-24] MEDS: PANTOPRAZOLE 40 MG INJ VIAL IVP ONE (21:00)
[2024-05-24 21:19] LABS: ANION GAP 12.4 (8-16); CALCIUM 7.5 mg/dL (8.5-10.1); CARBON DIOXIDE 23.4 mmol/L (21-32); CREATININE 0.8 mg/dL (0.6-1.3); POTASSIUM 3.8 mmol/L (3.5-5.1)
[2024-05-24 21:23] LABS: ALBUMIN 2.3 g/dL (3.4-5.0); BILIRUBIN,DIRECT 0.2 mg/dL (0.0-0.3); TOTAL BILIRUBIN 0.6 mg/dL (0.0-1.0); TOTAL PROTEIN, SERUM 6.1 g/dL (6.4-8.2)
[2024-05-24 21:25] LABS: LACTIC ACID 2.2 mmol/L (0.4-2.0)
[2024-05-24 21:47] LABS: INR 1.15 (0.8-1.2); PARTIAL THROMBOPLASTIN TIME 20.5 secs (22-35.6)
[2024-05-24] MEDS ORDERED: PANTOPRAZOLE 40 MG INJ VIAL ONE (21:47)
[2024-05-24] MEDS: PANTOPRAZOLE 80 MG in NACL 0.9% 100 ML IV SCH (22:19)
[2024-05-24] MEDS: OCTREOTIDE ACETATE 1.25 MG in NACL 0.9% 250 ML IV SCH (22:20)
[2024-05-24] MEDS: OCTREOTIDE ACETATE 100 MCG/ML VIAL IV ONE (22:21)
[2024-05-24] MEDS: OCTREOTIDE ACETATE 1000 MCG/5 ML VIAL ONE ×2 (22:34)
[2024-05-25] MEDS: ACETAMINOPHEN 325 MG TAB PO ONE (02:38)
[2024-05-25 04:30] VITALS: PULSE 100; RESP 18; O2SAT 99
[2024-05-25] MEDS: PANTOPRAZOLE 40 MG INJ VIAL ONE (05:48)
[2024-05-25 07:50] LABS: BASOPHILS % (AUTO) 1.2 % (0.0-2.0); EOSINOPHILS # (AUTO) 0.2 K/uL (0-0.4); EOSINOPHILS % (AUTO) 5.7 % (0.0-4.0); HEMATOCRIT 27.3 % (36-52); HEMOGLOBIN 8.7 g/dL (12.0-18.0); LYMPHOCYTES # (AUTO) 1.1 K/uL (2.0-11.5); MEAN CORPUSCULAR HEMOGLOBIN 23 pg (27-31); MEAN CORPUSCULAR HGB CONC 32 g/dL (33-37); MEAN CORPUSCULAR VOLUME 72.2 fL (80-94); MONOCYTES # (AUTO) 0.4 K/uL (0.8-1.0); MONOCYTES % (AUTO) 8.9 % (1.7-9.3); NEUTROPHILS # (AUTO) 2.3 K/uL (1.8-7.7); NEUTROPHILS % (AUTO) 56.2 % (42.2-75.2); PLATELET COUNT (AUTO) 99 K/uL (140-450); RED BLOOD CELL COUNT(AUTO) 3.78 MIL/uL (4.20-6.10); RED CELL DISTRIBUTION WIDTH 20.3 % (11.6-13.7)
[2024-05-25 08:00] VITALS: BP 111/72; PULSE 101; PULSE 62; RESP 20; TEMP 97.3
[2024-05-25 08:10] LABS: ALBUMIN 2.4 g/dL (3.4-5.0); ANION GAP 11.6 (8-16); CALCIUM 7.5 mg/dL (8.5-10.1); CARBON DIOXIDE 23.5 mmol/L (21-32); CREATININE 0.8 mg/dL (0.6-1.3); POTASSIUM 4.1 mmol/L (3.5-5.1); TOTAL BILIRUBIN 1.2 mg/dL (0.0-1.0); TOTAL PROTEIN, SERUM 6.4 g/dL (6.4-8.2)
[2024-05-25 12:00] VITALS: BP 119/71; PULSE 100; PULSE 96; RESP 20; TEMP 97.8
[2024-05-25 16:00] VITALS: BP 115/73; PULSE 101; PULSE 76; PULSE 96; PULSE 98; RESP 20; TEMP 98.3
[2024-05-25] MEDS: MIDAZOLAM 2 MG/2 ML VIAL ONE ×2 (16:16→16:17)
[2024-05-25] MEDS: fentaNYL citrate 0.05 MG/ML VIAL ONE (16:16)
[2024-05-25] MEDS: diphenhydrAMINE 50 MG/ML VIAL ONE (16:16)
[2024-05-25] MEDS: MIDAZOLAM 5 MG/5 ML VIAL IV ONE (16:19)
[2024-05-25] MEDS ORDERED: OCTREOTIDE ACETATE 1.25 MG in NACL 0.9% 250 ML IV SCH (16:20)
[2024-05-25] MEDS: fentaNYL citrate 0.05 MG/ML VIAL IVP ONE (16:20)
[2024-05-25] MEDS: PROPRANOLOL 20 MG TAB PO SCH (17:00)
[2024-05-25] MEDS: PANTOPRAZOLE 80 MG in NACL 0.9% 100 ML IV SCH (17:00)
[2024-05-25 20:00] VITALS: BP 118/61; PULSE 107; PULSE 117; RESP 20; TEMP 97.7; O2SAT 98
[2024-05-26] VITALS: BP 134/60; PULSE 110; PULSE 112; RESP 20; TEMP 97.9; O2SAT 94
[2024-05-26 04:00] VITALS: BP 154/71; PULSE 106; PULSE 110; RESP 19; TEMP 98.1; O2SAT 95
[2024-05-26 08:00] VITALS: BP 155/75; PULSE 109; PULSE 112; PULSE 86; RESP 18; RESP 20; TEMP 97.7; O2SAT 98
[2024-05-26 12:00] VITALS: BP 117/69; PULSE 86; PULSE 90; RESP 19; TEMP 98.2; O2SAT 98
[2024-05-26 16:00] VITALS: BP 128/77; PULSE 88; PULSE 96; RESP 19; TEMP 97.2; O2SAT 97
[2024-05-26] MEDS: LACTULOSE 20 GM/30 ML UDC PO SCH (16:00)
[2024-05-26] MEDS: LANSOPRAZOLE 30 MG CAPDR PO SCH (17:41)
[2024-05-26 18:36] LABS: BASOPHILS # (AUTO) 0.1 K/uL (0.00-0.22); BASOPHILS % (AUTO) 0.9 % (0.0-2.0); EOSINOPHILS # (AUTO) 0.2 K/uL (0-0.4); EOSINOPHILS % (AUTO) 2.8 % (0.0-4.0); HEMATOCRIT 27.2 % (36-52); HEMOGLOBIN 8.5 g/dL (12.0-18.0); LYMPHOCYTES # (AUTO) 1.2 K/uL (2.0-11.5); LYMPHOCYTES % (AUTO) 20.8 % (20.5-51.1); MEAN CORPUSCULAR HEMOGLOBIN 23 pg (27-31); MEAN CORPUSCULAR HGB CONC 31 g/dL (33-37); MEAN CORPUSCULAR VOLUME 71.7 fL (80-94); MONOCYTES # (AUTO) 0.5 K/uL (0.8-1.0); NEUTROPHILS % (AUTO) 67.5 % (42.2-75.2); PLATELET COUNT (AUTO) 126 K/uL (140-450); RED BLOOD CELL COUNT(AUTO) 3.79 MIL/uL (4.20-6.10); RED CELL DISTRIBUTION WIDTH 21.5 % (11.6-13.7); WHITE BLOOD COUNT (AUTO) 5.9 K/uL (4.8-10.8)
[2024-05-26 18:49] LABS: ALBUMIN 2.5 g/dL (3.4-5.0); ANION GAP 11.9 (8-16); CALCIUM 7.8 mg/dL (8.5-10.1); CARBON DIOXIDE 23.9 mmol/L (21-32); CREATININE 0.7 mg/dL (0.6-1.3); POTASSIUM 3.8 mmol/L (3.5-5.1); TOTAL PROTEIN, SERUM 6.7 g/dL (6.4-8.2)
[2024-05-26 20:00] VITALS: BP 122/78; PULSE 83; PULSE 91; RESP 18; TEMP 97; O2SAT 97
[2024-05-26] MEDS: RIFAXIMIN 550 MG TAB PO SCH (20:36)
[2024-05-26] MEDS ORDERED: LACTULOSE 20 GM/30 ML UDC PO SCH (21:00)
[2024-05-27] VITALS (7 sets, daily range): BP systolic 110–134; BP diastolic 63–76; PULSE 75–96; RESP 18; TEMP 97.3–98.8; O2SAT 96–100
[2024-05-27] MEDS ORDERED: DEXTROSE 50% 50 ML SYR IVP PRN (10:45)
[2024-05-27] MEDS: BLOOD GLUCOSE MONITORING 1 DEV DEV FS SCH (11:40)
[2024-05-27] MEDS: INSULIN LISPRO SLIDING SCALE 100 UNITS/ML VIAL SUBQ PRN (12:08)
[2024-05-27 18:30] LABS: BASOPHILS % (AUTO) 0.5 % (0.0-2.0); EOSINOPHILS # (AUTO) 0.3 K/uL (0-0.4); EOSINOPHILS % (AUTO) 4.4 % (0.0-4.0); HEMATOCRIT 27.3 % (36-52); HEMOGLOBIN 8.5 g/dL (12.0-18.0); LYMPHOCYTES # (AUTO) 1.9 K/uL (2.0-11.5); MEAN CORPUSCULAR HEMOGLOBIN 23 pg (27-31); MEAN CORPUSCULAR HGB CONC 31 g/dL (33-37); MEAN CORPUSCULAR VOLUME 72.2 fL (80-94); MONOCYTES # (AUTO) 0.5 K/uL (0.8-1.0); MONOCYTES % (AUTO) 9.2 % (1.7-9.3); NEUTROPHILS # (AUTO) 3.1 K/uL (1.8-7.7); NEUTROPHILS % (AUTO) 53.9 % (42.2-75.2); PLATELET COUNT (AUTO) 136 K/uL (140-450); RED BLOOD CELL COUNT(AUTO) 3.79 MIL/uL (4.20-6.10); RED CELL DISTRIBUTION WIDTH 21.6 % (11.6-13.7); WHITE BLOOD COUNT (AUTO) 5.8 K/uL (4.8-10.8)
[2024-05-27 18:36] LABS: ANION GAP 13.2 (8-16); CALCIUM 7.8 mg/dL (8.5-10.1); CARBON DIOXIDE 23.1 mmol/L (21-32); CREATININE 0.8 mg/dL (0.6-1.3); POTASSIUM 3.3 mmol/L (3.5-5.1)
[2024-05-27] MEDS: POTASSIUM CHLORIDE 10 MEQ TABER PO ONE (21:23)
[2024-05-28] VITALS: BP 118/66; PULSE 77; RESP 18; TEMP 98.7; O2SAT 100
[2024-05-28 08:00] VITALS: BP 125/77; PULSE 85; RESP 18; TEMP 97.8; O2SAT 100; O2SAT 98
[2024-05-28 12:11] LABS: BASOPHILS % (AUTO) 0.8 % (0.0-2.0); EOSINOPHILS # (AUTO) 0.1 K/uL (0-0.4); EOSINOPHILS % (AUTO) 2.8 % (0.0-4.0); HEMATOCRIT 28.1 % (36-52); HEMOGLOBIN 8.8 g/dL (12.0-18.0); LYMPHOCYTES % (AUTO) 20.5 % (20.5-51.1); MEAN CORPUSCULAR HEMOGLOBIN 23 pg (27-31); MEAN CORPUSCULAR HGB CONC 32 g/dL (33-37); MEAN CORPUSCULAR VOLUME 72.2 fL (80-94); MONOCYTES # (AUTO) 0.5 K/uL (0.8-1.0); MONOCYTES % (AUTO) 9.8 % (1.7-9.3); NEUTROPHILS # (AUTO) 3.3 K/uL (1.8-7.7); NEUTROPHILS % (AUTO) 66.1 % (42.2-75.2); PLATELET COUNT (AUTO) 120 K/uL (140-450); RED BLOOD CELL COUNT(AUTO) 3.88 MIL/uL (4.20-6.10)
[2024-05-28 12:51] LABS: ALBUMIN 2.7 g/dL (3.4-5.0); ANION GAP 12.5 (8-16); CALCIUM 7.6 mg/dL (8.5-10.1); CREATININE 0.8 mg/dL (0.6-1.3); POTASSIUM 3.5 mmol/L (3.5-5.1); TOTAL BILIRUBIN 0.8 mg/dL (0.0-1.0); TOTAL PROTEIN, SERUM 7.1 g/dL (6.4-8.2)
[2024-05-28 14:35] LABS: RED CELL DISTRIBUTION WIDTH 21.9 % (11.6-13.7)
[2024-05-28 16:00] VITALS: BP 117/68; PULSE 96; RESP 18; TEMP 98.9; O2SAT 98
[2024-05-28 20:00] VITALS: BP 102/48; PULSE 90; RESP 18; TEMP 98.2; O2SAT 96; O2SAT 98
[2024-05-28 20:12] VITALS: O2SAT 95
[2024-05-29 08:00] VITALS: BP 125/79; PULSE 89; PULSE 90; RESP 18; TEMP 97.6; O2SAT 95; O2SAT 96
[2024-05-29] MEDS: LACTULOSE 20 GM/30 ML UDC PO SCH (09:22)
[2024-05-29 11:46] VITALS: O2SAT 95
[2024-05-29] MEDS ORDERED: LANS30EC68 PO (15:14)
[2024-05-29] MEDS ORDERED: LACT10SO11 PO (15:14)
[2024-05-29] MEDS ORDERED: METF-346 PO (15:14)
[2024-05-29] MEDS ORDERED: PROP20TA29 PO (15:14)
[2024-05-29 16:00] VITALS: BP 122/88; PULSE 88; RESP 18; TEMP 98; O2SAT 99
[2024-05-29 19:39] VITALS: PULSE 90; RESP 22; O2SAT 97
[2024-05-29 20:00] VITALS: BP 93/41; PULSE 90; RESP 20; TEMP 97.4; O2SAT 97
[2024-05-29 22:41] VITALS: O2SAT 97
[2024-05-30 00:31] VITALS: O2SAT 92
[2024-05-30 04:00] VITALS: BP 116/64; PULSE 92; RESP 20; TEMP 97.5; O2SAT 98
[2024-05-30 08:00] VITALS: BP 113/67; PULSE 101; PULSE 90; RESP 18; RESP 20; TEMP 98.5; O2SAT 97
[2024-05-30 08:35] VITALS: O2SAT 98
[2024-05-30 15:21] VITALS: BP 121/80; PULSE 88; RESP 18; TEMP 98
== END 2024-05-30 16:00 | disposition home or self-care (01) | DRG 432 ==
LOC: MED 19:25 → MTU 05-25 03:16
PROVIDERS: ADMIT Hospitalist; ATTEND Hospitalist
PROC: 06L38CZ Occlusion of Esophageal Vein with Extraluminal Device, Via Natural or Artificial Opening Endoscopic (ICD-10-PCS; 2024-05-25)
PROC: 30233N1 Transfusion of Nonautologous Red Blood Cells into Peripheral Vein, Percutaneous Approach (ICD-10-PCS; principal; 2024-05-25 15:00)
DX: K70.30 Alcoholic cirrhosis of liver without ascites (principal); E43 Unspecified severe protein-calorie malnutrition; I85.11 Secondary esophageal varices with bleeding; R65.11 Systemic inflammatory response syndrome (SIRS) of non-infectious origin with acute organ dysfunction; B18.9 Chronic viral hepatitis, unspecified; D62 Acute posthemorrhagic anemia; K74.60 Unspecified cirrhosis of liver; K76.82 Hepatic encephalopathy; F15.10 Other stimulant abuse, uncomplicated; K31.89 Other diseases of stomach and duodenum; I86.4 Gastric varices; I10 Essential (primary) hypertension; E11.9 Type 2 diabetes mellitus without complications; Z79.899 Other long term (current) drug therapy; Z68.21 Body mass index [BMI] 21.0-21.9, adult
CPT/HCPCS: 36415; 36430; 71045; 80048; 80053; 80076; 82140; 82948; 83605; 83690; 85025; 85610; 85730; 86886; 86900; 86901; 86920; 87040; 87081; 93005; 96361; 96374; 96375; 97112; 97163-GP; 99291; J0696; J1200; J1815; J2250; J2270; J2354; J2405; J2470; J3010; J7030; J7060; P9016; Q9967

== ENCOUNTER 2024-06-12 00:31 | Emergency (ER) | payer OTHER ==
[~2024-06-12] VITALS: Ht 195.6 cm; Wt 108.9 kg
[~2024-06-12 00:31] MED LIST changes: -AZIT250T3 PO; +LACT10SO11 PO; +LANS30EC68 PO; +METF-346 PO; +PROP20TA29 PO
[2024-06-12 00:37] VITALS: BP 113/69; PULSE 127; RESP 22; TEMP 98.6; O2SAT 98
[2024-06-12 01:30] VITALS: TEMP 98.7
[2024-06-12] MEDS: NACL 0.9% 1,000 ML IV SCH (01:43)
[2024-06-12] MEDS: MORPHINE SULFATE 4 MG/ML SYR IVP ONE (01:47)
[2024-06-12 02:01] LABS: BASOPHILS % (AUTO) 0.7 % (0.0-2.0); EOSINOPHILS # (AUTO) 0.1 K/uL (0-0.4); EOSINOPHILS % (AUTO) 2.8 % (0.0-4.0); HEMATOCRIT 24.1 % (36-52); HEMOGLOBIN 7.4 g/dL (12.0-18.0); LYMPHOCYTES # (AUTO) 0.8 K/uL (2.0-11.5); LYMPHOCYTES % (AUTO) 25.2 % (20.5-51.1); MEAN CORPUSCULAR HEMOGLOBIN 22 pg (27-31); MEAN CORPUSCULAR HGB CONC 31 g/dL (33-37); MEAN CORPUSCULAR VOLUME 69.8 fL (80-94); MONOCYTES # (AUTO) 0.3 K/uL (0.8-1.0); MONOCYTES % (AUTO) 8.2 % (1.7-9.3); NEUTROPHILS # (AUTO) 2.1 K/uL (1.8-7.7); NEUTROPHILS % (AUTO) 63.1 % (42.2-75.2); PLATELET COUNT (AUTO) 109 K/uL (140-450); RED BLOOD CELL COUNT(AUTO) 3.45 MIL/uL (4.20-6.10); RED CELL DISTRIBUTION WIDTH 20.6 % (11.6-13.7); WHITE BLOOD COUNT (AUTO) 3.3 K/uL (4.8-10.8)
[2024-06-12 02:21] LABS: ANION GAP 8.1 (8-16); CALCIUM 7.8 mg/dL (8.5-10.1); CARBON DIOXIDE 28.3 mmol/L (21-32); CREATININE 0.8 mg/dL (0.6-1.3); POTASSIUM 3.4 mmol/L (3.5-5.1)
[2024-06-12 02:25] LABS: ALBUMIN 2.7 g/dL (3.4-5.0); BILIRUBIN,DIRECT 0.3 mg/dL (0.0-0.3); TOTAL BILIRUBIN 0.8 mg/dL (0.0-1.0); TOTAL PROTEIN, SERUM 6.9 g/dL (6.4-8.2)
[2024-06-12 03:16] VITALS: BP 135/83; PULSE 113; RESP 19; O2SAT 97
[2024-06-12 04:31] LABS: APPEARANCE,URINE CLEAR (CLEAR); COLOR,URINE YELLOW (YELLOW); PROTEIN,URINE NEGATIVE (NEGATIVE); UGLUCOSE 3+ (NEGATIVE)
[2024-06-12 04:32] LABS: BILIRUBIN,URINE NEGATIVE (NEGATIVE); BLOOD, URINE NEGATIVE (NEGATIVE); LEUKOCYTE ESTERASE ,URINE NEGATIVE (NEGATIVE); NITRITE, URINE NEGATIVE (NEGATIVE)
[2024-06-12 04:34] LABS: BACTERIA,URINE FEW /HPF (None Seen); RBC,URINE 0 /HPF (0-5); SQUAMOUS EPITHELIAL CELL,UR FEW /LPF (0-3 (FEW)); WBC,URINE 0-5 /HPF (0-5)
[2024-06-12] MEDS ORDERED: ACET-8905 PO (04:39)
== END 2024-06-12 04:48 | disposition home or self-care (01) ==
LOC: MED 00:31
DX: R10.30 Lower abdominal pain, unspecified (principal); R50.9 Fever, unspecified; M54.9 Dorsalgia, unspecified; E11.9 Type 2 diabetes mellitus without complications; I10 Essential (primary) hypertension; Z85.831 Personal history of malignant neoplasm of soft tissue; Z98.890 Other specified postprocedural states; Z79.899 Other long term (current) drug therapy
CPT/HCPCS: 36415; 74176; 80048; 80076; 81001; 82140; 83690; 85025; 96361; 96374; 99284; J2270; J7030